=== PATIENT | female | born 1930 | race Caucasian/White ===

== ENCOUNTER 2017-09-25 21:16 | Inpatient (IN) | payer BC, MEDICARE ==
[2017-09-25 22:54] LABS: INR-International Normal Ratio 2.3; PTT 40.3 SEC (22.9-36.1); Prothrombin Time 26.2 SEC (12.0-14.7)
[2017-09-25 23:00] LABS: Band 14 % (5-11); Hemoglobin 14.1 g/dL (12.0-16.0); Lymphocytes 11 % (21-51); MDiff Complete? YES; Mean Corpuscular HGB CONC 33.5 g/dL (32.0-36.0); Mean Corpuscular Hemoglobin 32.4 pg (27.0-31.0); Mean Corpuscular Volume 96.7 fl (81.0-99.0); Mean Platelet Volume 7.5 fL (7.4-10.4); Monocytes 2 % (0-10); Neutrophil 73 % (42-75); PLT Morphology Comment Appears Adequate; Platelet Count 253 thou/uL (130-400); RBC Distribution Width 12.9 % (11.5-14.5); Red Blood Cell (RBC) Count 4.36 mill/uL (4.20-5.40); White Blood Cell (WBC) Count 29.6 thou/uL (4.8-10.8)
[2017-09-25 23:17] LABS: ALT (SGPT) 201 U/L (8-55); AST (SGOT) 239 U/L (5-34); Alkaline Phosphatase 232 U/L (40-150); Anion Gap 10 mmol/L (10-20); BUN (Urea Nitrogen) 31 mg/dL (9.8-20.1); Bilirubin, Total 4.6 mg/dL (0.2-1.2); Calc. Creatinine Clearance 0 mL/min (70-130); Calcium 8.6 mg/dL (7.8-10.44); Carbon Dioxide 28 mmol/L (23-31); Chloride 107 mmol/L (98-107); Estimated GFR-MDRD 68; Globulin 3.4 g/dL (2.4-3.5); Glucose 120 mg/dL (83-110); Lipase Less than 4 U/L (8-78); Potassium 3.5 mmol/L (3.5-5.1); Protein, Total 6.4 g/dL (6.0-8.3); Sodium 141 mmol/L (136-145)
[2017-09-26 00:25] VITALS: BMI 27.4
[2017-09-26] MEDS ORDERED: Sodium Chloride 0.9% 1,000 ML IV SCH (00:35)
[2017-09-26] MEDS ORDERED: Calcium Carbonate 500 MG ChewTAB PO PRN (04:34)
[2017-09-26] MEDS ORDERED: RENALLY ADJUST ANTIBIOTICS IVPB PRN (04:34)
[2017-09-26] MEDS ORDERED: Ondansetron HCl/PF 4 MG/2 ML Vial IVP PRN (04:34)
[2017-09-26] MEDS ORDERED: Ondansetron ODT 4 MG TAB PO PRN (04:34)
[2017-09-26] MEDS ORDERED: hydrALAZINE 20 MG/ML VIAL SLOW IVP PRN (04:36)
--- NOTE | 2017-09-26 05:01 | HP ---
DATE OF ADMISSION: 09/25/2017 PRIMARY CARE PHYSICIAN: Dr. Juarez. CODE STATUS: DO NOT RESUSCITATE. Surrogate decision maker is the daughter at the bedside. CHIEF COMPLAINT: The patient is a transfer from [facility] for possible cholangitis. HISTORY OF PRESENT ILLNESS: The patient is an 87-year-old female with dementia, currently residing a [facility], was brought in to [facility] with altered mentation. Her workup in the emergency room was consistent with possible cholangitis. Her lactic acid was 3.5. Urinalysis showe d nitrite positive, 20-50 wbc's, small amount of leukocyte esterase with many bacteria. BNP was 1100 . Troponin was negative. BUN was 34, creatinine 0.96, potassium 4.2, bilirubin of 5.6 with alkaline phosphatase 254, AST 406, ALT of 265. WBC 33.6, hemoglobin 14.6. Lactic acid 3.8. INR 2.2. Ultra sound of the abdomen showed cholelithiasis without sonographic findings to suggest acute cholecystiti s. CT abdomen and pelvis with contrast was consistent with cholelithiasis and dilated gallbladder wi thout other findings of acute cholecystitis. It showed indirect right inguinal hernia containing non obstructed loops of distal small bowel. There was some possible distal proctocolitis, which may be s tercoral. Chest x-ray was negative for infiltrate. CT scan of the brain was negative for acute find ings. She received Zosyn with IV fluids and was transferred to this facility for hospital admission. PAST MEDICAL HISTORY: 1. Chronic atrial fibrillation on anticoagulation. 2. 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 3. Hypertension. 4. Hypothyroidism. 5. Dementia. 6. Sick sinus syndrome. 7. Osteoporosis. 8. Hard of hearing. 9. Chronic anemia. PAST SURGICAL HISTORY: 1. Left femur surgery in 2009. 2. Thyroid surgery. 3. Hysterectomy. ALLERGIES: The patient is allergic to CODEINE. CURRENT HOME MEDICATIONS: We are trying to contact [facility]. There is no medication list in [facility] chart. SOCIAL HISTORY: As discussed above. No smoking, alcohol or drug use. She is wheelchair bound. She requires help with transfers. She is currently on pureed diet. She has chronic cognitive issues an d at times she is able to recognize her daughter. FAMILY HISTORY: Positive for hypertension and hypothyroidism. REVIEW OF SYSTEMS: Cannot be obtained reliably due to patient's current cognitive status. PHYSICAL EXAMINATION: VITAL SIGNS: Current vital signs showed temperature 98.2, pulse rate of 119, respirations 20, blood pressure 115/81 with O2 saturation 99% on 2 liter nasal cannula. GENERAL: An 87-year-old female in no apparent distress. Mentation at baseline per family at the bed side. HEENT: Head atraumatic, normocephalic. Sclerae are anicteric. Dry mucous membranes. No oral lesio n. NECK: Supple, no JVD appreciated. No carotid bruit. LUNGS: Showed decreased air entry at bilateral bases. No significant wheezing, rales or rhonchi. HEART: S1, S2 present. Irregularly irregular. No murmur, rubs, or gallops appreciated. ABDOMEN: Soft, nontender, bowel sounds present, no rebound, guarding appreciated. EXTREMITIES: No edema or calf tenderness. NEUROLOGIC: Could not be done due to current cognitive status. PSYCHIATRIC: Could not be done due to current cognitive status. SKIN: Warm and dry. LYMPH NODES: No palpable lymph nodes in the neck. LABORATORY AND X-RAY FINDINGS: As discussed above. Repeat WBC at this facility was 29.6 with 14% ba ndemia. INR was 2.3. Total bilirubin 4.6 with AST 239, ALT 201, alkaline phosphatase 232, albumin w as 3.0. Lipase was negative. Magnesium 1.9. A 2D echocardiogram from last admission showed left ve ntricular ejection fraction of 50%-55%. EKG by my review showed atrial fibrillation with nonspecific ST-T wave changes. IMPRESSION: 1. Sepsis with acute organ dysfunction with abnormal liver function tests. Possibilities include ac cherokee cholangitis/questionable acute cholecystitis. 2. Urinary tract infection. 3. Dehydration. 4. Chronic atrial fibrillation on anticoagulation. 5. Hypertension. 6. Hyperlipidemia. 7. Dementia. 8. Hypothyroidism. 9. Swallow dysfunction, currently on pureed diet. 10. CODEINE allergy. 11. Chronic kidney disease stage 2. PLAN: The patient will be monitored in the telemetry unit. We will keep her n.p.o. Consult GI and General Surgery in a.m. Continue Zosyn and urine cultures, IV fluids. Monitor LFTs. Repeat lactic acid was normal. We will confirm home medications from [facility]. Plan of care was discussed with the patient's daughter at the bedside, she stated understanding. Fall precautions. N.p.o. for now.
[2017-09-26] MEDS ORDERED: Piperacillin/Tazobactam 3.375 GM in Sodium Chloride 0.9% 100 ML IVPB SCH (06:00)
[2017-09-26] MEDS: Piperacillin/Tazobactam 3.375 GM in Sodium Chloride 0.9% 100 ML IVPB SCH ×4 (08:06→23:04)
[2017-09-26] MEDS: Pantoprazole 40 MG VIAL IVP SCH (08:06)
[2017-09-26] MEDS: D5 1/2 NS w/20 mEq KCL 1,000 ML IV SCH ×3 (08:52→23:54)
--- NOTE | 2017-09-26 14:16 | PDOC.PN ---
- Subjective Encounter Start Date: 09/26/17 Encounter Start Time: 14:14 Subjective: exhausted.no new complaints -: daughter at bedside.care discussed - Objective Resuscitation Status: Resuscitation Status DNR:Do Not Resuscitate MAR Reviewed: Yes Vital Signs & Weight: Vital Signs (12 hours) Temp Pulse Resp BP Pulse Ox 09/26/17 08:00 96.8 F L 96 20 110/71 96 09/26/17 04:44 96.9 F L 90 36 H 100/61 93 L I&O: 09/25/17 09/26/17 09/27/17 06:59 06:59 06:59 Intake Total 600 0 Balance 600 0 Result Diagrams: 09/25/17 22:39 09/25/17 22:39 Radiology Reviewed by me: Yes Phys Exam - Physical Examination Constitutional: NAD HEENT: PERRLA, moist MMs, sclera anicteric, oral pharynx no lesions Neck: no nodes, no JVD, supple, full ROM Respiratory: no wheezing, no rales, no rhonchi, clear to auscultation bilateral Cardiovascular: RRR, no significant murmur Gastrointestinal: soft, no distention Musculoskeletal: no edema, pulses present Neurological: moves all 4 limbs Psychiatric: normal affect, A&O x 3 Skin: no rash Dx/Plan (1) Sepsis Code(s): A41.9 - SEPSIS, UNSPECIFIED ORGANISM Status: Acute (2) Acute cholangitis Code(s): K83.0 - CHOLANGITIS Status: Acute (3) UTI (urinary tract infection) Status: Acute (4) Chronic atrial fibrillation Code(s): I48.2 - CHRONIC ATRIAL FIBRILLATION Status: Chronic Comment: rate controlled. Eliquis on hold in anticipation of surgery (5) HTN (hypertension) Code(s): I10 - ESSENTIAL (PRIMARY) HYPERTENSION Status: Acute (6) Dementia Code(s): F03.90 - UNSPECIFIED DEMENTIA WITHOUT BEHAVIORAL DISTURBANCE Status: Acute - Plan plan discussed w/ family, PT/OT, out of bed/ambulate, DVT proph w/SCDs cont IVF,IV ABx, -: awaiting GI and GS recs. -: follow LFts. -: resume home meds except for anticoagulation. -: am labs * .
--- NOTE | 2017-09-26 15:07 | CON ---
DATE OF CONSULTATION: 09/26/2017 CHIEF COMPLAINT: Possible cholecystitis. HISTORY OF PRESENT ILLNESS: The patient is an 87-year-old female who lives in a long term with thompson. She is DNR. Apparently yesterday, she stopped eating and developed nausea and vomiting. Rika amaya went to the emergency room in [place] where a CT scan and ultrasound showed a thickened gallbladder wall, multiple cholelithiasis. She was sent here. PAST MEDICAL HISTORY: Significant for atrial fibrillation on Eliquis, history of CVA in 2013, hypert ension, hypothyroidism, dementia, sick sinus syndrome. PAST SURGICAL HISTORY: She had a left femur fracture repair in 2009. She has had a thyroidectomy an d hysterectomy. MEDICATIONS: Aspirin, diltiazem, benzoate, Eliquis, Lasix, losartan, nadolol, potassium. ALLERGIES: She is allergic to CODEINE. SOCIAL HISTORY: Again, she lives in a long term. No tobacco or alcohol. I spoke to her daughter and [id number]. PHYSICAL EXAMINATION: VITAL SIGNS: Temperature 96.8, pulse 96, blood pressure 110/71. GENERAL: Elderly female, really not responsive. She will open her eyes, but that is about it. Th ere is no interaction. HEENT: She is jaundiced. She got obvious jaundice. LUNGS: Clear. HEART: Irregularly irregular. ABDOMEN: Soft. She has some mild right upper quadrant tenderness to deep palpation, no palpable mas s. EXTREMITIES: Unremarkable. LABORATORY DATA AND X-RAY FINDINGS: White count 29.6, H&H is 14 and 42, platelet count 253. Electro lytes show creatinine 0.8, glucose is elevated at 120. Her bilirubin is 4.6, AST of 239, alkaline ph osphatase 232, lipase is normal. ASSESSMENT: Acute cholecystitis, possible choledocholithiasis. PLAN: I talked to the daughter and [id number]. They are really not interested in the patient h aving surgery, looking at other options, she is also high risk for surgery. We will recommend GI con sultation for possible ERCP as well as percutaneous drainage of the gallbladder. We will talk to Rad iology for that procedure.
--- NOTE | 2017-09-26 16:00 | CT ---
CT OF THE ABDOMEN AND PELVIS WITHOUT IV CONTRAST: INDICATION: History of gallbladder disease requiring cholecystotomy tube. COMPARISON: None. FINDINGS: There are small bilateral pleural effusions and bibasilar atelectasis. There is cardiomegaly. The adrenal glands are unremarkable. There is some mild fatty atrophy of the pancreas. The spleen i s small. There is fatty infiltration of the liver. There is a gallstone within a mildly distended gallbladder. There is dilatation of the common bile d uct without definite evidence of an intraluminal stone. There is some mild nonspecific mesenteric st randing within the mesenteric root. There are small cysts involving both kidneys. There is prominent vascular calcification involving the abdominopelvic vasculature. Visualized aspects of the bladder are unremarkable. There is wall thickening involving the rectum, w hich is nonspecific. There are a few scattered colonic diverticula without evidence of active divert iculitis. There is a right inguinal hernia containing nonobstructed loops of small bowel. The appendix is not definitely seen. There are multiple compression abnormalities involving the thoracolumbar spine. Th izzy are of indeterminate chronicity. There is diffuse osteopenia. There is complete occlusion of th e proximal right SFA artery. There is a healed instrumented left hip fracture. No acute osseous abn ormality is evident. IMPRESSION: 1. Cholelithiasis with mild distention of the gallbladder. Recommend correlation with clinical exam for cholecystitis. 2. Dilatation of the common bile duct without visible definite intraluminal stone. Minimal intrahepa tic biliary ductal dilation. 3. Small bilateral pleural effusion and cardiomegaly. Recommend correlation regarding congestive he art failure. 4. 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 5. Right inguinal hernia containing nonobstructive loops of small bowel. 6. Small renal cysts. 7. Colonic diverticulosis. 8. Nonspecific wall thickening involving the rectum may reflect a component of proctitis. Recommend correlation. 9. Multiple age-indeterminate compression abnormalities involving T11, L1, L3, L4, and L5. POS: [facility]
[2017-09-26] MEDS ORDERED: ISOVUE-370 76%-LOCM 1 ML ONE (16:24)
[2017-09-27 05:23] LABS: #Eosinphils 0.1 thou/uL (0.0-0.7); #Lymphocytes 1.8 thou/uL (1.20-3.40); #Monocytes 0.6 thou/uL (0.11-0.59); #Neutrophils 10.6 thou/uL (1.40-6.50); %Basophils 0.1 % (0.0-1.0); %Eosinophils 0.4 % (0.0-10.0); %Lymphocytes 13.5 % (21.0-51.0); %Monocytes 4.4 % (0.0-10.0); %Neutrophils 81.5 % (42.0-75.0); Hemoglobin 13.5 g/dL (12.0-16.0); Mean Corpuscular HGB CONC 31.7 g/dL (32.0-36.0); Mean Corpuscular Hemoglobin 31.1 pg (27.0-31.0); Mean Corpuscular Volume 98.3 fl (81.0-99.0); Mean Platelet Volume 8.1 fL (7.4-10.4); Platelet Count 252 thou/uL (130-400); Red Blood Cell (RBC) Count 4.34 mill/uL (4.20-5.40)
[2017-09-27 05:37] LABS: ALT (SGPT) 102 U/L (8-55); AST (SGOT) 56 U/L (5-34); Albumin 2.8 g/dL (3.4-4.8); Alkaline Phosphatase 190 U/L (40-150); Anion Gap 8 mmol/L (10-20); BUN (Urea Nitrogen) 16 mg/dL (9.8-20.1); Bilirubin, Total 2.1 mg/dL (0.2-1.2); Calc. Creatinine Clearance 58 mL/min (70-130); Calcium 8.3 mg/dL (7.8-10.44); Carbon Dioxide 28 mmol/L (23-31); Chloride 110 mmol/L (98-107); Estimated GFR-MDRD 79; Globulin 3.2 g/dL (2.4-3.5); Glucose 141 mg/dL (83-110); Magnesium 1.9 mg/dL (1.6-2.6); Phosphorus 2.9 mg/dL (2.3-4.7); Potassium 3.3 mmol/L (3.5-5.1); Sodium 143 mmol/L (136-145)
[2017-09-27] MEDS: Piperacillin/Tazobactam 3.375 GM in Sodium Chloride 0.9% 100 ML IVPB SCH ×4 (06:10→23:31)
[2017-09-27] MEDS ORDERED: Midazolam HCl 2 mg/2 ml Vial ONE (08:12)
[2017-09-27] MEDS ORDERED: Fentanyl 100 MCG/2 ML VIAL ONE (08:12)
[2017-09-27] MEDS ORDERED: Sodium Bicarbonate 2.5 MEQ/5 ML VIAL ONE (08:12)
[2017-09-27] MEDS: Pantoprazole 40 MG VIAL IVP SCH (09:55)
[2017-09-27] MEDS ORDERED: Heparin 1,000 UNITS/ML VIAL ONE (10:00)
--- NOTE | 2017-09-27 10:58 | CON ---
DATE OF CONSULTATION: 09/26/2017 REFERRING PHYSICIAN: Dr. Jamir James. REASON FOR CONSULTATION: Abnormal liver function tests and distended gallbladder on sonogram and CAT scan and possibility of cholangitis. HISTORY OF PRESENT ILLNESS: Ms. Janet Amador is an 87-year-old female, who is a [facility] resident. Her regular primary care doctor, Dr. Juarez. The patient was seen in [facility] in [place] with altered mental status. The patient was seen at [facility] and had ev aluation done. It was found to have a UTI and also evidence of abnormal LFTs. The bilirubin level o f 5.6 and alkaline phosphatase 254. She had an abdominal sonogram and CAT scan. The CAT scan and so nogram showed markedly distended gallbladder, but did not show any evidence of any dilation of the bi le duct. She also had a leukocytosis with WBC count of more than 30,000 and also she has bandemia. Her lactic acid was 3.8. It was felt that she has septic and there is a possibility of cholangitis. She was transferred to [facility] last night. The patient was last seen in the room along with the patient's daughters. The patient is nonverbal. Apparently, she has had a CVA in the past a nd she is aphasic. She also has dementia. She is also hard of hearing. Most of the history is obta ined by going over the admitting history and physical by Dr. James. The patient was seen by Dr. Sancho Gama today and Dr. Sancho Gama recommended that percutaneous cholecystostomy because of poor surgica l outcome . The sonogram and CAT both showed gallbladder stone and also distended gallbladder. There is no dilated CBD. The patient is lying in bed and appears comfortable in no distress. There is no other relevant history available. MEDICAL ILLNESSES: 1. Chronic atrial fibrillation, on anticoagulation. 2. History of cerebrovascular accident 2013. 3. Dementia. 4. Hypertension. 5. Hypothyroidism. 6. Sick sinus syndrome. 7. Osteoporosis 8. Chronic anemia. SURGERIES: 1. Status post left knee surgery in 2009. 2. Thyroid surgery. 3. Hysterectomy. MEDICATIONS: List reviewed. REVIEW OF SYSTEMS: Unobtainable because of the dementia and also aphasia. PHYSICAL EXAMINATION: GENERAL: The patient appears comfortable and she really has no response to any questioning. She is in no distress. She is icteric. VITAL SIGNS: Temperature 99 degrees Fahrenheit. Pulse is 80, blood pressure 130/70. NECK: Supple. CARDIOVASCULAR: First and second heart sounds normal. LUNGS: Clear to auscultation. ABDOMEN: Soft to palpate. Abdomen is nondistended. Abdomen is nontender even on deep palpation. T here is no rebound or guarding. No organomegaly or masses. LABORATORY DATA: Showed a UTI with wbc's 20 to 50 and small amount of leukoesterase and many bacteri a. BUN was 34, creatinine 0.96, potassium 4.2, bilirubin 5.6, alkaline phosphatase 254. AST 406, AL T 265. WBC 33,600 with bandemia, hemoglobin 14.6. Lactic acid 3.8. CLINICAL IMPRESSION: 1. An 87-year-old female with altered mental status with no history of abdominal pain, nausea, vomit ing. The evaluation in the ER did show abnormal LFTs and subsequently, she had an abdominal sonogram and CAT scan. Both showed gallstones and also distended gallbladder. There is no dilated CBD or in trahepatic ducts. 2. Urinary tract infection. I believe she most likely has acute cholecystitis and at the present time, there is no evidence of an y bile duct dilatation. I agree with Dr. Sancho Gama's recommendation to proceed with a percutaneous cholecystostomy.
--- NOTE | 2017-09-27 12:10 | CT ---
CT GUIDED SUBCUTANEOUS CHOLECYSTOTOMY: HISTORY: Acute cholecystitis. Poor surgical candidate. FINDINGS: After explaining the procedure and answering all questions, limited CT imaging of the upper abdomen w as performed. Anterior right upper quadrant approach as planned. Sterile technique, buffered local anesthesia, CT guidance, and an anterolateral approach were used to carefully advance the tip of 22-g auge needle into the gallbladder lumen. While attempt was made to achieve purchase through the hepat ic parenchyma, the gallbladder anatomy, position, and patient inability to cooperate with respiration of breathing precluded good hepatic parenchyma purchase approach. Acupuncture system technique was then used to place a 0.035 Amplatz wire. The tract was dilated to 8 Luxembourger and an 8 Luxembourger locking loop Uresil catheter was placed in the gallbladder lumen. Approximat jojo 20 cc of thick greenish liquid was aspirated. A portion was sent to pathology for evaluation. T he catheter was secured externally with 2-0 Ethilon suture and left draining to gravity. The patient tolerate the procedure well and was returned in improved condition. IMPRESSION: Technically successful CT-guided cholecystostomy. Pathology is pending. POS: [facility]
[2017-09-27] MEDS ORDERED: Morphine 2 MG/ML SYRINGE SLOW IVP SCH (13:30)
[2017-09-27] MEDS: D5 1/2 NS w/20 mEq KCL 1,000 ML IV SCH (13:34)
--- NOTE | 2017-09-27 14:14 | PDOC.PN ---
- Subjective Encounter Start Date: 09/27/17 Encounter Start Time: 14:12 Subjective: S/P CT GUIDED CHOLECYSTOSTOMY -: Not bal eto discuss care d/t advanced dementia -: family at bedside.care discussed w them.they report that pt is at baseline - Objective Resuscitation Status: Resuscitation Status DNR:Do Not Resuscitate MAR Reviewed: Yes Vital Signs & Weight: Vital Signs (12 hours) Temp Pulse Pulse Resp BP BP Pulse Ox 09/27/17 12:15 97.4 F L 112 H 24 H 170/72 H 100 09/27/17 08:40 97.3 F L 101 H 32 H 132/84 100 09/27/17 08:00 98.2 F 74 28 H 144/74 H 95 09/27/17 07:46 105 H 192/83 H 09/27/17 04:00 98.2 F 105 H 20 151/72 H 97 Pulse Ox 09/27/17 12:15 09/27/17 08:40 09/27/17 08:00 09/27/17 07:46 91 L 09/27/17 04:00 Weight Admit Weight 145 lb 4 oz Weight 145 lb 4 oz I&O: 09/26/17 09/27/17 09/28/17 06:59 06:59 06:59 Intake Total 600 1000 Balance 600 1000 Result Diagrams: 09/27/17 05:01 09/27/17 05:01 Additional Labs: Laboratory Tests 09/25/17 09/27/17 22:39 05:01 Total Bilirubin 4.6 H 2.1 H AST 239 H 56 H ALT 201 H 102 H Alkaline Phosphatase 232 H 190 H Radiology Reviewed by me: Yes (Ct A/P- SFA occlusion R side,cholelithiasis) Phys Exam - Physical Examination Constitutional: NAD awake,doesn't follow commands.very hard of hearing.responds better to famil dry mucosa,mouth breathing Neck: no nodes, no JVD, supple, full ROM Respiratory: no wheezing, no rales, no rhonchi, clear to auscultation bilateral Cardiovascular: RRR, no significant murmur Gastrointestinal: soft, no distention, positive bowel sounds GB drain in place w brownish liquid Musculoskeletal: no edema, pulses present Neurological: moves all 4 limbs Psychiatric: normal affect Dx/Plan (1) Sepsis Code(s): A41.9 - SEPSIS, UNSPECIFIED ORGANISM Status: Acute (2) Acute cholangitis Code(s): K83.0 - CHOLANGITIS Status: Acute (3) UTI (urinary tract infection) Status: Acute Comment: Cx pending. (4) Chronic atrial fibrillation Code(s): I48.2 - CHRONIC ATRIAL FIBRILLATION Status: Chronic Comment: rate controlled. Eliquis on hold in anticipation of surgery (5) HTN (hypertension) Code(s): I10 - ESSENTIAL (PRIMARY) HYPERTENSION Status: Acute (6) Dementia Code(s): F03.90 - UNSPECIFIED DEMENTIA WITHOUT BEHAVIORAL DISTURBANCE Status: Acute - Plan galeano catheter, continue antibiotics, PT/OT, speech therapy, DVT proph w/SCDs Cont post-op care.appreciate GI & GS input -: cont ABx. -: SFA oclusion discussed w family.they do not want any surgery for her. -: replace and recheck potassium -: Home meds not updated.Eliquis on hold * .OT,PT. may need rehab.Lives at [facility] Review of Systems - Review of Systems Other: can not be obtained due to dementia - Medications/Allergies Allergies/Adverse Reactions: Allergies Allergy/AdvReac Type Severity Reaction Status Date / Time codeine Allergy Verified 01/11/14 20:16 Medications: Current Medications Calcium Carbonate (Tums) 1,000 mg PO Q4H PRN PRN Reason: Heartburn or Indigestion Hydralazine HCl (Apresoline) 10 mg SLOW IVP Q4H PRN PRN Reason: SBP Greater Than 180 Piperacillin Sod/Tazobactam (Sod 3.375 gm/ Sodium Chloride) 100 mls @ 200 mls/ hr IVPB Q6HR [facility] Last Admin: 09/27/17 12:16 Dose: 100 mls Potassium Chloride/Dextrose/Sod Cl (D5 1/2 Ns W/20 Meq Kcl) 1,000 mls @ 75 mls/ hr IV .[id number] [facility] Last Admin: 09/27/17 13:34 Dose: 1,000 mls Miscellaneous Medication (Pharmacy To Dose) 1 each IVPB PRN PRN PRN Reason: Pharmacy to dose Morphine Sulfate (Morphine) 2 mg SLOW IVP NOW [facility] Stop: 09/27/17 15:00 Last Admin: 09/27/17 13:33 Dose: 2 mg Ondansetron HCl (Zofran Odt) 4 mg PO Q6H PRN PRN Reason: Nausea/Vomiting Ondansetron HCl (Zofran) 4 mg IVP Q6H PRN PRN Reason: Nausea/Vomiting Pantoprazole Sodium (Protonix) 40 mg IVP DAILY [facility] Last Admin: 09/27/17 09:55 Dose: 40 mg Sodium Chloride (Flush - Normal Saline) 10 ml IVF Q12HR [facility] Last Admin: 09/27/17 09:56 Dose: 10 ml Sodium Chloride (Flush - Normal Saline) 10 ml IVF PRN PRN PRN Reason: Saline Flush Last Admin: 09/26/17 23:04 Dose: 10 ml
[2017-09-27] MEDS ORDERED: Potassium Chloride 40 MEQ in Sodium Chloride 0.9% 250 ML 250 ML IVPB SCH (14:30)
--- NOTE | 2017-09-27 15:39 | PRG ---
DATE OF SERVICE: 09/27/2017 SUBJECTIVE: Ms. Janet Amador is an 87-year-old unfortunate female hospitalized with abnormal LF Ts and sepsis and possible cholangitis. The patient was seen by Dr. Sancho Gama and patient is high r isk for surgery. She underwent a percutaneous cholecystostomy by Dr. Wolff this morning. She is d oing well at the present time. She is aphasic and she cannot communicate. OBJECTIVE: GENERAL: Appears comfortable. VITAL SIGNS: Temperature 98.3 Fahrenheit. Pulse is 74, blood pressure 144/77. CARDIOVASCULAR: Within normal limits. LUNGS: Within normal limits. ABDOMEN: Soft to palpate. Abdomen is nondistended. The patient's LFTs are coming down even before her cholecystostomy. LABORATORY DATA: The lab data from today, sodium 143, potassium 3.3, chloride 110, bicarbonate 28, B UN is 16, creatinine 0.70. Glucose 141, bilirubin down to 2.1, AST down to 56, ALT 102, alkaline santana sphatase 190. CBC: WBC count has come down to 13,000, normal hemoglobin and hematocrit. The differe ntial count shows no bandemia today, polymorphs 81, monocytes 4, basophils 0.1, lymphocytes 13.5. RECOMMENDATION: Possible cholangitis, cholecystitis, status post cholecystectomy. From GI standpoint, workup planned. Hopefully she can [facility] the near future.
[2017-09-27 16:43] LABS: Clarity Clear (Clear); RBC Background Count 0.007; Tube # EDTA
[2017-09-27 16:44] LABS: BF RBC Count - Manual 45 /cumm; WBC/NonHematic-Auto 251 /cumm
[2017-09-27] MEDS: traMADol HCl 50 MG TAB PO PRN (20:58)
[2017-09-28 05:26] LABS: #Basophils 0.1 thou/uL (0.0-0.2); #Eosinphils 0.1 thou/uL (0.0-0.7); #Lymphocytes 2.5 thou/uL (1.20-3.40); #Monocytes 0.8 thou/uL (0.11-0.59); #Neutrophils 8.1 thou/uL (1.40-6.50); %Basophils 0.5 % (0.0-1.0); %Eosinophils 0.7 % (0.0-10.0); %Lymphocytes 21.9 % (21.0-51.0); %Monocytes 6.7 % (0.0-10.0); %Neutrophils 70.3 % (42.0-75.0); Hemoglobin 13.8 g/dL (12.0-16.0); Mean Corpuscular HGB CONC 32.3 g/dL (32.0-36.0); Mean Corpuscular Hemoglobin 31.5 pg (27.0-31.0); Mean Corpuscular Volume 97.6 fl (81.0-99.0); Mean Platelet Volume 8.1 fL (7.4-10.4); Platelet Count 233 thou/uL (130-400); Red Blood Cell (RBC) Count 4.38 mill/uL (4.20-5.40); White Blood Cell (WBC) Count 11.5 thou/uL (4.8-10.8)
[2017-09-28] MEDS: Piperacillin/Tazobactam 3.375 GM in Sodium Chloride 0.9% 100 ML IVPB SCH ×4 (05:37→23:33)
[2017-09-28] MEDS: D5 1/2 NS w/20 mEq KCL 1,000 ML IV SCH (05:38)
[2017-09-28 05:44] LABS: ALT (SGPT) 67 U/L (8-55); AST (SGOT) 28 U/L (5-34); Albumin 2.8 g/dL (3.4-4.8); Alkaline Phosphatase 174 U/L (40-150); Anion Gap 10 mmol/L (10-20); BUN (Urea Nitrogen) 14 mg/dL (9.8-20.1); Bilirubin, Total 2.4 mg/dL (0.2-1.2); Calc. Creatinine Clearance 64 mL/min (70-130); Calcium 8.4 mg/dL (7.8-10.44); Carbon Dioxide 23 mmol/L (23-31); Chloride 113 mmol/L (98-107); Estimated GFR-MDRD 89; Globulin 3.1 g/dL (2.4-3.5); Glucose 133 mg/dL (83-110); Magnesium 1.9 mg/dL (1.6-2.6); Phosphorus 2.6 mg/dL (2.3-4.7); Potassium 4.2 mmol/L (3.5-5.1); Protein, Total 5.9 g/dL (6.0-8.3); Sodium 142 mmol/L (136-145)
[2017-09-28] MEDS: Pantoprazole 40 MG VIAL IVP SCH (08:55)
[2017-09-28] MEDS ORDERED: Benzonatate 100 MG CAP PO PRN ×2 (11:48→12:54)
--- NOTE | 2017-09-28 14:03 | PDOC.PN ---
- Subjective Encounter Start Date: 09/28/17 Encounter Start Time: 14:02 Subjective: feels about the same. denies any pain.no new complaints -: daughter at bedside. car ediscussed in detail -: Pt w aphasia & dementia,so limited participation - Objective Resuscitation Status: Resuscitation Status DNR:Do Not Resuscitate MAR Reviewed: Yes Vital Signs & Weight: Vital Signs (12 hours) Temp Pulse Resp BP Pulse Ox 09/28/17 11:25 96.3 F L 134 H 30 H 133/90 97 09/28/17 07:41 96.8 F L 108 H 20 09/28/17 07:30 96.8 F L 108 H 20 141/93 H 98 09/28/17 04:00 96.8 F L 106 H 18 135/87 97 Weight Admit Weight 145 lb 4 oz Weight 145 lb 4 oz I&O: 09/27/17 09/28/17 09/29/17 06:59 06:59 06:59 Intake Total 1000 3930 Output Total 550 Balance 1000 3380 Result Diagrams: 09/28/17 04:50 09/28/17 04:50 Additional Labs: Microbiology 09/27/17 09:15 Gallbladder - Aspirate Bacterial Culture - Preliminary Laboratory Tests 09/25/17 09/27/17 09/27/17 22:39 05:01 09:15 Total Bilirubin 4.6 H 2.1 H AST 239 H 56 H ALT 201 H 102 H Alkaline Phosphatase 232 H 190 H Fluid WBC 251 Fluid RBC (Manual) 45 09/28/17 04:50 Total Bilirubin 2.4 H AST 28 ALT 67 H Alkaline Phosphatase 174 H Fluid WBC Fluid RBC (Manual) Phys Exam - Physical Examination Constitutional: NAD sleeping but wakes up easily.jaundiced HEENT: PERRLA, 2+ tonsils Neck: no JVD Respiratory: no wheezing, no rales, no rhonchi, clear to auscultation bilateral Cardiovascular: no significant murmur, irregular Gastrointestinal: soft, non-tender, no distention, positive bowel sounds Musculoskeletal: no edema, pulses present hemiparesis,aphasic Psychiatric: normal affect Skin: no rash Dx/Plan (1) Sepsis Code(s): A41.9 - SEPSIS, UNSPECIFIED ORGANISM Status: Acute (2) Acute cholangitis Code(s): K83.0 - CHOLANGITIS Status: Acute (3) UTI (urinary tract infection) Status: Acute Comment: Cx pending.GNR (4) Chronic atrial fibrillation Code(s): I48.2 - CHRONIC ATRIAL FIBRILLATION Status: Chronic Comment: rate controlled. Eliquis on hold in anticipation of surgery (5) HTN (hypertension) Code(s): I10 - ESSENTIAL (PRIMARY) HYPERTENSION Status: Acute (6) Dementia Code(s): F03.90 - UNSPECIFIED DEMENTIA WITHOUT BEHAVIORAL DISTURBANCE Status: Acute - Plan PT/OT, community mental health social worker, respiratory therapy, incentive spirometry, DVT proph w/ SCDs Home meds update and restarted including BB and CCB. -: cont to hold eliquis to prevent risk of bleed from surgical site -: cont ABx.follow Cx from urine & bile.on zosyn -: DC IVF.hold lasix for now.If renal Fx stable,will restart from tomorrow -: am labs.DC back to [facility] when ok w GS * . 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 - Medications/Allergies Allergies/Adverse Reactions: Allergies Allergy/AdvReac Type Severity Reaction Status Date / Time codeine Allergy Verified 01/11/14 20:16 Medications: Current Medications Acidophilus (Floranex) 1 tab PO TID [facility] Aspirin (Aspirin Chewable) 81 mg PO DAILY [facility] Benzonatate (Tessalon) 200 mg PO TIDPRN PRN PRN Reason: Cough Calcium Carbonate (Tums) 1,000 mg PO Q4H PRN PRN Reason: Heartburn or Indigestion Diltiazem HCl (Cardizem) 30 mg PO Q6H [facility] Last Admin: 09/28/17 12:55 Dose: 30 mg Hydralazine HCl (Apresoline) 10 mg SLOW IVP Q4H PRN PRN Reason: SBP Greater Than 180 Piperacillin Sod/Tazobactam (Sod 3.375 gm/ Sodium Chloride) 100 mls @ 200 mls/ hr IVPB Q6HR [facility] Last Admin: 09/28/17 11:40 Dose: 100 mls Levothyroxine Sodium (Synthroid) 75 mcg PO 0600 [facility] Miscellaneous Medication (Pharmacy To Dose) 1 each IVPB PRN PRN PRN Reason: Pharmacy to dose Nadolol (Corgard) 40 mg PO DAILY [facility] Ondansetron HCl (Zofran Odt) 4 mg PO Q6H PRN PRN Reason: Nausea/Vomiting Ondansetron HCl (Zofran) 4 mg IVP Q6H PRN PRN Reason: Nausea/Vomiting Pantoprazole Sodium (Protonix) 40 mg PO DAILY [facility] Simvastatin (Zocor) 5 mg PO HS [facility] Sodium Chloride (Flush - Normal Saline) 10 ml IVF Q12HR [facility] Last Admin: 09/28/17 08:55 Dose: 10 ml Sodium Chloride (Flush - Normal Saline) 10 ml IVF PRN PRN PRN Reason: Saline Flush Last Admin: 09/26/17 23:04 Dose: 10 ml Tramadol HCl (Ultram) 50 mg PO Q4H PRN PRN Reason: Pain Last Admin: 09/27/17 20:58 Dose: 50 mg
[2017-09-28] MEDS: Lactinex Tablet PO SCH ×2 (15:27→21:38)
[2017-09-28] MEDS: Simvastatin 5 MG TAB PO SCH (21:38)
[2017-09-29 05:02] LABS: #Eosinphils 0.1 thou/uL (0.0-0.7); #Lymphocytes 2.1 thou/uL (1.20-3.40); #Monocytes 0.9 thou/uL (0.11-0.59); #Neutrophils 7.9 thou/uL (1.40-6.50); %Basophils 0.1 % (0.0-1.0); %Eosinophils 0.6 % (0.0-10.0); %Lymphocytes 19.5 % (21.0-51.0); %Monocytes 8.4 % (0.0-10.0); %Neutrophils 71.5 % (42.0-75.0); Hemoglobin 13.8 g/dL (12.0-16.0); Mean Corpuscular HGB CONC 32.5 g/dL (32.0-36.0); Mean Corpuscular Hemoglobin 31.5 pg (27.0-31.0); Mean Corpuscular Volume 96.9 fl (81.0-99.0); Mean Platelet Volume 7.9 fL (7.4-10.4); Platelet Count 234 thou/uL (130-400); RBC Distribution Width 12.8 % (11.5-14.5); Red Blood Cell (RBC) Count 4.39 mill/uL (4.20-5.40)
[2017-09-29] MEDS: Levothyroxine Sodium 75 MCG TAB PO SCH (05:06)
[2017-09-29 05:15] LABS: ALT (SGPT) 50 U/L (8-55); AST (SGOT) 22 U/L (5-34); Albumin 2.8 g/dL (3.4-4.8); Alkaline Phosphatase 150 U/L (40-150); Anion Gap 12 mmol/L (10-20); BUN (Urea Nitrogen) 16 mg/dL (9.8-20.1); Calc. Creatinine Clearance 62 mL/min (70-130); Calcium 8.3 mg/dL (7.8-10.44); Carbon Dioxide 22 mmol/L (23-31); Chloride 111 mmol/L (98-107); Estimated GFR-MDRD 86; Globulin 3.3 g/dL (2.4-3.5); Glucose 130 mg/dL (83-110); Potassium 3.7 mmol/L (3.5-5.1); Protein, Total 6.1 g/dL (6.0-8.3); Sodium 141 mmol/L (136-145)
[2017-09-29] MEDS: Piperacillin/Tazobactam 3.375 GM in Sodium Chloride 0.9% 100 ML IVPB SCH ×4 (05:46→23:53)
[2017-09-29] MEDS: Nadolol 40 MG TAB PO SCH (08:49)
[2017-09-29] MEDS: Lactinex Tablet PO SCH ×3 (08:49→21:04)
--- NOTE | 2017-09-29 11:47 | PDOC.PN ---
- Subjective Encounter Start Date: 09/29/17 Encounter Start Time: 11:46 Subjective: feels OK. very hard of hearing so limited conversation -: also severe dysarthria d/t old CVA -: no new events per nursing - Objective Resuscitation Status: Resuscitation Status DNR:Do Not Resuscitate MAR Reviewed: Yes Vital Signs & Weight: Vital Signs (12 hours) Temp Pulse Resp BP Pulse Ox 09/29/17 08:00 97.4 F L 106 H 22 H 09/29/17 07:39 97.4 F L 106 H 22 H 160/97 H 94 L 09/29/17 04:00 96.8 F L 98 32 H 139/76 97 09/29/17 00:00 97.9 F 118 H 36 H 138/84 100 Weight Admit Weight 145 lb 4 oz Weight 145 lb 4 oz I&O: 09/28/17 09/29/17 09/30/17 06:59 06:59 06:59 Intake Total 3930 1140 Output Total 550 400 Balance 3380 740 Result Diagrams: 09/29/17 04:39 09/29/17 04:39 Additional Labs: Microbiology 09/27/17 09:15 Gallbladder - Aspirate Bacterial Culture - Final Escherichia coli Laboratory Tests 09/25/17 09/27/17 09/28/17 22:39 05:01 04:50 Total Bilirubin 4.6 H 2.1 H 2.4 H AST 239 H 56 H 28 ALT 201 H 102 H 67 H Alkaline Phosphatase 232 H 190 H 174 H 09/29/17 04:39 Total Bilirubin 2.0 H AST 22 ALT 50 Alkaline Phosphatase 150 Phys Exam - Physical Examination Constitutional: NAD more awake and interactive today,mouth breather HEENT: PERRLA, sclera anicteric dry mucosa due to mouth breathing Neck: no JVD Respiratory: no wheezing, no rales, no rhonchi Cardiovascular: no significant murmur, irregular Gastrointestinal: soft, non-tender, no distention, positive bowel sounds Musculoskeletal: no edema, pulses present Neurological: non-focal, normal sensation, moves all 4 limbs Psychiatric: normal affect Skin: no rash Deviation from normal: Jaundice improved Dx/Plan (1) Sepsis Code(s): A41.9 - SEPSIS, UNSPECIFIED ORGANISM Status: Acute (2) Acute cholangitis Code(s): K83.0 - CHOLANGITIS Status: Acute Comment: S/P Cholecystostomy with external drain (3) UTI (urinary tract infection) Status: Acute Comment: Cx pending.GNR (4) Chronic atrial fibrillation Code(s): I48.2 - CHRONIC ATRIAL FIBRILLATION Status: Chronic Comment: rate controlled. Eliquis on hold due to recent surgery (5) HTN (hypertension) Code(s): I10 - ESSENTIAL (PRIMARY) HYPERTENSION Status: Chronic (6) Dementia Code(s): F03.90 - UNSPECIFIED DEMENTIA WITHOUT BEHAVIORAL DISTURBANCE Status: Chronic (7) Transaminitis Code(s): R74.0 - NONSPEC ELEV OF LEVELS OF TRANSAMNS & LACTIC ACID DEHYDRGNSE Status: Acute Comment: improving.d/t GB stones and obstructive Jaundice (8) Hyperbilirubinemia Code(s): E80.6 - OTHER DISORDERS OF BILIRUBIN METABOLISM Status: Acute Comment: improving.d/t GB stones and obstructive Jaundice - Plan galeano catheter, continue antibiotics, PT/OT, respiratory therapy, incentive spirometry, out of bed/ambulate, DVT proph w/SCDs Tachycardia improved w starting home meds including BB & CCB.BP WNL.monitor -: E.coli in bile-sensitive to zosyn-continue.Drain in place -: GS following.will need to know if pt needs to be discharged with/without it -: LFTs,Bilirubin improving daily post Cholecystostomy -: cont supportive care.restart lasix at lower dose & monitor renal Fx * . Review of Systems - Review of Systems Other: limited d/t dysarthria,hearing loss and dementia - Medications/Allergies Allergies/Adverse Reactions: Allergies Allergy/AdvReac Type Severity Reaction Status Date / Time codeine Allergy Verified 01/11/14 20:16 Medications: Current Medications Acidophilus (Floranex) 1 tab PO TID [facility] Last Admin: 09/29/17 08:49 Dose: 1 tab Aspirin (Aspirin Chewable) 81 mg PO DAILY [facility] Last Admin: 09/29/17 08:49 Dose: 81 mg Benzonatate (Tessalon) 200 mg PO TIDPRN PRN PRN Reason: Cough Calcium Carbonate (Tums) 1,000 mg PO Q4H PRN PRN Reason: Heartburn or Indigestion Diltiazem HCl (Cardizem) 30 mg PO Q6H [facility] Last Admin: 09/29/17 05:05 Dose: 30 mg Hydralazine HCl (Apresoline) 10 mg SLOW IVP Q4H PRN PRN Reason: SBP Greater Than 180 Piperacillin Sod/Tazobactam (Sod 3.375 gm/ Sodium Chloride) 100 mls @ 200 mls/ hr IVPB Q6HR [facility] Last Admin: 09/29/17 05:46 Dose: 100 mls Levothyroxine Sodium (Synthroid) 75 mcg PO 0600 [facility] Last Admin: 09/29/17 05:06 Dose: 75 mcg Miscellaneous Medication (Pharmacy To Dose) 1 each IVPB PRN PRN PRN Reason: Pharmacy to dose Nadolol (Corgard) 40 mg PO DAILY [facility] Last Admin: 09/29/17 08:49 Dose: 40 mg Ondansetron HCl (Zofran Odt) 4 mg PO Q6H PRN PRN Reason: Nausea/Vomiting Ondansetron HCl (Zofran) 4 mg IVP Q6H PRN PRN Reason: Nausea/Vomiting Pantoprazole Sodium (Protonix) 40 mg PO DAILY [facility] Last Admin: 09/29/17 08:49 Dose: 40 mg Simvastatin (Zocor) 5 mg PO HS [facility] Last Admin: 09/28/17 21:38 Dose: 5 mg Sodium Chloride (Flush - Normal Saline) 10 ml IVF Q12HR [facility] Last Admin: 09/29/17 08:49 Dose: Not Given Sodium Chloride (Flush - Normal Saline) 10 ml IVF PRN PRN PRN Reason: Saline Flush Last Admin: 09/26/17 23:04 Dose: 10 ml Tramadol HCl (Ultram) 50 mg PO Q4H PRN PRN Reason: Pain Last Admin: 09/27/17 20:58 Dose: 50 mg
[2017-09-29] MEDS ORDERED: Furosemide 20 MG TAB PO SCH (12:30)
[2017-09-29] MEDS: Simvastatin 5 MG TAB PO SCH (21:04)
[2017-09-30 05:07] LABS: #Eosinphils 0.1 thou/uL (0.0-0.7); #Lymphocytes 2.2 thou/uL (1.20-3.40); #Neutrophils 7.3 thou/uL (1.40-6.50); %Basophils 0.2 % (0.0-1.0); %Eosinophils 0.6 % (0.0-10.0); %Lymphocytes 20.6 % (21.0-51.0); %Monocytes 9.5 % (0.0-10.0); %Neutrophils 69.1 % (42.0-75.0); Mean Corpuscular HGB CONC 32.4 g/dL (32.0-36.0); Mean Corpuscular Hemoglobin 31.3 pg (27.0-31.0); Mean Corpuscular Volume 96.6 fl (81.0-99.0); Mean Platelet Volume 8.1 fL (7.4-10.4); Platelet Count 246 thou/uL (130-400); RBC Distribution Width 12.8 % (11.5-14.5); Red Blood Cell (RBC) Count 4.46 mill/uL (4.20-5.40); White Blood Cell (WBC) Count 10.6 thou/uL (4.8-10.8)
[2017-09-30 05:15] LABS: Anion Gap 12 mmol/L (10-20); BUN (Urea Nitrogen) 13 mg/dL (9.8-20.1); Calc. Creatinine Clearance 59 mL/min (70-130); Calcium 8.5 mg/dL (7.8-10.44); Carbon Dioxide 25 mmol/L (23-31); Chloride 105 mmol/L (98-107); Estimated GFR-MDRD 82; Glucose 113 mg/dL (83-110); Potassium 3.2 mmol/L (3.5-5.1); Sodium 139 mmol/L (136-145)
[2017-09-30] MEDS: Piperacillin/Tazobactam 3.375 GM in Sodium Chloride 0.9% 100 ML IVPB SCH ×4 (05:17→23:34)
[2017-09-30] MEDS: Levothyroxine Sodium 75 MCG TAB PO SCH (05:17)
[2017-09-30] MEDS: Lactinex Tablet PO SCH ×3 (09:23→22:18)
[2017-09-30] MEDS: Potassium Chloride 20 MEQ TAB PO SCH ×2 (09:23→18:01)
[2017-09-30] MEDS: Furosemide 20 MG TAB PO SCH (09:23)
[2017-09-30] MEDS: Nadolol 40 MG TAB PO SCH (09:24)
[2017-09-30] MEDS ORDERED: Clopidogrel Bisulfate 75 MG TAB ONE (11:55)
--- NOTE | 2017-09-30 13:25 | PQF ---
CLINICAL DOCUMENTATION IMPROVEMENT CLARIFICATION FORM: ICD-10 Updated PLEASE DO AN ADDENDUM TO THE PROGRESS NOTE WITH ANY DOCUMENTATION UPDATES OR ADDITIONS AND CARRY THROUGH TO DC SUMMARY. THANK YOU. DATE: 09/30/17 ATTN: Dr. James Please exercise your independent, professional judgment in responding to the clarification form. Clinical indicators are provided on the bottom of this form for your review Please check appropriate box(s): I (concur) with the Nursing Assessment findings as stated below. [ ] Pressure Ulcer: (Stage I: Erythema; Stage II: Partial thickness; Stage III : Full thickness; Stage IV: Necrosis to muscle/bone) [ ] Location: Stage (I to IV): (Left Right Bilateral N/ A ) [ ] Location: Stage (I to IV): (Left Right Bilateral N/ A ) [ ] No pressure ulcer diagnosis [ ] Deep tissue injury [ ] Other diagnosis [ ] Unable to determine In addition, please specify: Present on Admission (POA): [ ] Yes [ ] No [ ] Unable to determine For continuity of documentation, please document condition throughout progress notes and discharge summary. Thank You. CLINICAL INDICATORS - SIGNS / SYMPTOMS / LABS NURSING ASSESSMENT 09/26 @ 0800: LEFT LATERAL FOOT PRESSURE ULCER. STAGE II SACROCOCCYGEAL PRESSURE ULCER. STAGE I RISKS: H&P:87 YR OLD WITH DEMENTIA. HX CVA IN 2013, HTN, CHRONIC ANEMIA. SHE IS WHEELCHAIR BOUND. SEPSIS. UTI. DEHYDRATION. TREATMENTS: SKIN INTERVENTIONS PER NURSING PROTOCOL. POSITION CHANGES: Q2H IN BED, Q1 H IN CHAIR SKIN KEPT FROM EXCESSIVE MOISTURE. Pre-ulcer skin changes limited to persistent focal edema (Stage 1) Abrasion, blister, partial thickness skin loss involving epidermis and/or dermis (Stage 2) Full thickness skin loss involving damage or necrosis of SQ tissue. (Stage 3) Necrosis of soft tissue through to underlying muscle, tendon, or bone. (Stage 4) Purple or maroon discolored skin or blood filled blister Thank you, Iva (This form is maintained as a part of the permanent medical record) 2015 [employer]. All Rights Reserved Iva Roldan RN, BSN [email or web address] Office: [phone] [facility]
--- NOTE | 2017-09-30 21:59 | PDOC.PN ---
- Subjective Encounter Start Date: 09/30/17 Encounter Start Time: 10:30 Patient seen and examined. No new complaints. No overnight events - Objective Resuscitation Status: Resuscitation Status DNR:Do Not Resuscitate MAR Reviewed: Yes Vital Signs & Weight: Vital Signs (12 hours) Temp Pulse Resp BP BP Pulse Ox 09/30/17 20:00 98.0 F 101 H 20 134/81 90 L 09/30/17 13:20 98.5 F 90 20 108/71 93 L 09/30/17 12:00 97.8 F 79 18 121/75 95 Weight Admit Weight 145 lb 4 oz Weight 145 lb 4 oz I&O: 09/29/17 09/30/17 10/01/17 06:59 06:59 06:59 Intake Total 1140 1610 Output Total 400 4224 550 Balance 332 -7261 -550 Result Diagrams: 10/01/17 04:49 10/01/17 04:49 EKG Reviewed by me: Yes (Tele Afib) Phys Exam - Physical Examination Constitutional: NAD Respiratory: no wheezing, no rhonchi Cardiovascular: no rub, irregular Gastrointestinal: soft, non-tender, positive bowel sounds Musculoskeletal: no edema Neurological: moves all 4 limbs Dx/Plan - Plan DVT proph w/lovenox, DVT proph w/SCDs IMPRESSION: 1. Sepsis with acute organ dysfunction duet to acute cholangitis/?acute cholecystitis. 2. Hypokalemia 3. Chronic atrial fibrillation 4. Hypertension. 5. 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 STAGE I (Present of admission) 6. Other issues per previous notes PLAN: * Change Atbx to Ceftriaxone based on culture * Replace Potassium * AM labs * DC planning * Surg following Review of Systems - Review of Systems Respiratory: negative: Cough, Dry, Shortness of Breath, Hemoptysis, SOB with Excertion, Pleuritic Pain, Sputum, Wheezing Cardiovascular: negative: chest pain, palpitations, orthopnea, paroxysmal nocturnal dyspnea, edema, light headedness, other Gastrointestinal: negative: Nausea, Vomiting, Abdominal Pain, Diarrhea, Constipation, Melena, Hematochezia, Other - Medications/Allergies Allergies/Adverse Reactions: Allergies Allergy/AdvReac Type Severity Reaction Status Date / Time codeine Allergy Verified 01/11/14 20:16 Medications: Current Medications Acidophilus (Floranex) 1 tab PO TID [facility] Last Admin: 09/30/17 18:01 Dose: 1 tab Aspirin (Aspirin Chewable) 81 mg PO DAILY [facility] Last Admin: 09/30/17 09:23 Dose: 81 mg Benzonatate (Tessalon) 200 mg PO TIDPRN PRN PRN Reason: Cough Calcium Carbonate (Tums) 1,000 mg PO Q4H PRN PRN Reason: Heartburn or Indigestion Diltiazem HCl (Cardizem) 30 mg PO Q6H [facility] Last Admin: 09/30/17 18:10 Dose: 30 mg Furosemide (Lasix) 20 mg PO DAILY [facility] Last Admin: 09/30/17 09:23 Dose: 20 mg Hydralazine HCl (Apresoline) 10 mg SLOW IVP Q4H PRN PRN Reason: SBP Greater Than 180 Piperacillin Sod/Tazobactam (Sod 3.375 gm/ Sodium Chloride) 100 mls @ 200 mls/ hr IVPB Q6HR [facility] Last Admin: 09/30/17 18:06 Dose: 100 mls Levothyroxine Sodium (Synthroid) 75 mcg PO 0600 [facility] Last Admin: 09/30/17 05:17 Dose: 75 mcg Miscellaneous Medication (Pharmacy To Dose) 1 each IVPB PRN PRN PRN Reason: Pharmacy to dose Nadolol (Corgard) 40 mg PO DAILY [facility] Last Admin: 09/30/17 09:24 Dose: 40 mg Ondansetron HCl (Zofran Odt) 4 mg PO Q6H PRN PRN Reason: Nausea/Vomiting Ondansetron HCl (Zofran) 4 mg IVP Q6H PRN PRN Reason: Nausea/Vomiting Pantoprazole Sodium (Protonix) 40 mg PO DAILY [facility] Last Admin: 09/30/17 09:24 Dose: 40 mg Simvastatin (Zocor) 5 mg PO HS [facility] Last Admin: 09/29/17 21:04 Dose: 5 mg Sodium Chloride (Flush - Normal Saline) 10 ml IVF Q12HR [facility] Last Admin: 09/30/17 09:24 Dose: 10 ml Sodium Chloride (Flush - Normal Saline) 10 ml IVF PRN PRN PRN Reason: Saline Flush Last Admin: 09/30/17 05:18 Dose: 10 ml Tramadol HCl (Ultram) 50 mg PO Q4H PRN PRN Reason: Pain Last Admin: 09/27/17 20:58 Dose: 50 mg
[2017-09-30] MEDS: Simvastatin 5 MG TAB PO SCH (22:18)
[2017-10-01 05:29] LABS: #Eosinphils 0.1 thou/uL (0.0-0.7); #Lymphocytes 2.5 thou/uL (1.20-3.40); #Neutrophils 5.8 thou/uL (1.40-6.50); %Eosinophils 0.8 % (0.0-10.0); %Lymphocytes 26.5 % (21.0-51.0); %Monocytes 10.2 % (0.0-10.0); %Neutrophils 62.5 % (42.0-75.0); Hemoglobin 14.3 g/dL (12.0-16.0); Mean Corpuscular HGB CONC 32.3 g/dL (32.0-36.0); Mean Corpuscular Hemoglobin 31.1 pg (27.0-31.0); Mean Corpuscular Volume 96.2 fl (81.0-99.0); Mean Platelet Volume 8.1 fL (7.4-10.4); Platelet Count 291 thou/uL (130-400); RBC Distribution Width 12.8 % (11.5-14.5); Red Blood Cell (RBC) Count 4.58 mill/uL (4.20-5.40); White Blood Cell (WBC) Count 9.3 thou/uL (4.8-10.8)
[2017-10-01 05:39] LABS: ALT (SGPT) 28 U/L (8-55); AST (SGOT) 17 U/L (5-34); Albumin 2.8 g/dL (3.4-4.8); Alkaline Phosphatase 151 U/L (40-150); Anion Gap 10 mmol/L (10-20); BUN (Urea Nitrogen) 11 mg/dL (9.8-20.1); Bilirubin, Total 2.5 mg/dL (0.2-1.2); Calc. Creatinine Clearance 62 mL/min (70-130); Calcium 8.3 mg/dL (7.8-10.44); Carbon Dioxide 28 mmol/L (23-31); Chloride 107 mmol/L (98-107); Estimated GFR-MDRD 86; Globulin 3.5 g/dL (2.4-3.5); Glucose 82 mg/dL (83-110); Magnesium 1.7 mg/dL (1.6-2.6); Phosphorus 3.5 mg/dL (2.3-4.7); Potassium 3.4 mmol/L (3.5-5.1); Protein, Total 6.3 g/dL (6.0-8.3); Sodium 142 mmol/L (136-145)
[2017-10-01] MEDS ORDERED: cefTRIAXone\\ROCEPHIN 1 GM in Sterile Water 10 ML SLOW IVP SCH (09:00)
[2017-10-01] MEDS ORDERED: D5 1/2 NS w/20 mEq KCL 1,000 ML IV SCH (10:30)
[2017-10-01 10:37] LABS: Actual Bicarbonate (HCO3a) 25.6 mEq/L (22-26); Base Excess (BEa) 0.2 mEq/L (0 (+/-) 2.5); CO2 Tension 44.6 mmHg (35.0-45.0); Calcium, Ionized 1.1 mmol/L (1.12-1.30); Hematocrit-ABG 42.6 % (36.0-47.0); Hemoglobin (Hb) 13.8 g/dL (12.0-16.0); Puncture Site RRA; pH, Arterial 7.38 (7.35-7.45)
[2017-10-01 11:09] LABS: Troponin I Less than 0.010 ng/mL (< 0.028)
--- NOTE | 2017-10-01 11:33 | RAD ---
SINGLE VIEW OF THE CHEST: Comparison: 03-27-12 History: Code Green. Shortness of breath. FINDINGS: Single view of the chest shows an enlarged cardiomediastinal silhouette. There are small bilateral pl eural effusions with adjacent atelectasis versus infiltrates. Increased interstitial markings are pre sent. IMPRESSION: 1. Cardiomegaly. 2. Bilateral pleural effusions with adjacent atelectasis versus infiltrate. POS: [facility]
[2017-10-01] MEDS: D5 1/2 NS w/20 mEq KCL 1,000 ML IV SCH ×3 (11:49→22:41)
--- NOTE | 2017-10-01 11:49 | CT ---
CT BRAIN WITHOUT COTNRAST: COMPARISON: None. HISTORY: Change of level of consciousness. Evaluate for stroke. TECHNIQUE: Multiple contiguous axial images were obtained in a CT of the brain without contrast. FINDINGS: There are scattered hypodensities in the subcortical and periventricular white matter, likely seconda ry to small-vessel ischemic disease. No large confluent infarction is seen. There is no evidence of hydrocephalus, intracranial hemorrhage, or extraaxial fluid collection. The calvarium and overlying soft tissues are unremarkable. The visualized paranasal sinuses and mast oid air cells are well aerated. IMPRESSION: 1. No evidence of acute intracranial abnormality. 2. Extensive small-vessel ischemic disease. POS: [facility]
[2017-10-01] MEDS: Potassium Chloride 20 MEQ TAB PO SCH (11:50)
[2017-10-01] MEDS: Furosemide 20 MG TAB PO SCH (11:50)
[2017-10-01] MEDS: Lactinex Tablet PO SCH ×3 (11:50→22:42)
[2017-10-01] MEDS: Levothyroxine Sodium 75 MCG TAB PO SCH (11:50)
[2017-10-01] MEDS: Nadolol 40 MG TAB PO SCH (11:50)
--- NOTE | 2017-10-01 11:55 | CT ---
CT GUIDED SUBCUTANEOUS CHOLECYSTOTOMY: HISTORY: Acute cholecystitis. Poor surgical candidate. FINDINGS: After explaining the procedure and answering all questions, limited CT imaging of the upper abdomen w as performed. Anterior right upper quadrant approach as planned. Sterile technique, buffered local anesthesia, CT guidance, and an anterolateral approach were used to carefully advance the tip of 22-g auge needle into the gallbladder lumen. While attempt was made to achieve purchase through the hepat ic parenchyma, the gallbladder anatomy, position, and patient inability to cooperate with respiration of breathing precluded good hepatic parenchyma purchase approach. Acupuncture system technique was then used to place a 0.035 Amplatz wire. The tract was dilated to 8 [place] and an 8 [place] locking loop Uresil catheter was placed in the gallbladder lumen. Approximat jojo 20 cc of thick greenish liquid was aspirated. A portion was sent to pathology for evaluation. T he catheter was secured externally with 2-0 Ethilon suture and left draining to gravity. The patient tolerate the procedure well and was returned in improved condition. IMPRESSION: Technically successful CT-guided cholecystostomy. Pathology is pending.
[2017-10-01] MEDS ORDERED: cefTRIAXone\\ROCEPHIN 1 GM, Syringe 0.4 ML in Sterile Water 9.6 ML SLOW IVP SCH ×2 (12:00→21:00)
[2017-10-01] MEDS ORDERED: Labetalol HCl 100 MG/20 ML VIAL SLOW IVP PRN (12:09)
--- NOTE | 2017-10-01 15:53 | SPC ---
EXAM: LEFT UPPER EXTREMITY PICC LINE PLACEMENT WITH ULTRASOUND GUIDANCE. 10/01/17 HISTORY: Infection. IV access for antibiotics is required. COMPARISON: None. EXPOSURE: 0.8 minutes. 4261 mGy*cm2. FINDINGS: Successful left upper extremity PICC line placement with ultrasound guidance. Distal tip is in the ri ght atrium. Both lumens flush and aspirate without difficulty. Trim length is 42 cm. TECHNIQUE: Consent obtained to perform an ultrasound guided left upper extremity PICC line. Left arm was prepped and draped in the sterile fashion. 1% lidocaine, buffered with sodium bicarbonate was used for local anesthesia. Under ultrasound guidance, micropuncture needle was used to cannulate the basilic vein. A 0.018 inch guide wire was advanced through the needle to the level of the superior vena cava. Under fluoroscopy, wire was advanced to the inferior vena cava to document venous access. Wire was subsequ ently pulled back to the right atrium. Trace is dilated. Dual lumen 5 Telugu catheter was advanced ov er the wire. Wire was removed. Both lumen flush and aspirate without difficulty. Trim length is 42 cm . IMPRESSION: Successful left upper extremity PICC line placement with ultrasound guidance. POS: [facility]
[2017-10-01] MEDS: Meropenem 1 GM in Sodium Chloride 0.9% 100 ML IVPB SCH ×2 (16:15→22:42)
[2017-10-01 18:31] LABS: Bilirubin Moderate (Negative); Clarity CLEAR (Clear); Glucose, Urine (Dipstick) Negative (Negative); Leukocyte Trace (Negative); Nitrite Negative (Negative); Protein, Urine (Dipstick) 30 mg/dL (Neg-Trace); Specific Gravity, Urine 1.031 (1.002-1.036)
[2017-10-01 18:34] LABS: Bacteria/HPF None Seen HPF (None Seen); Hyaline Casts/LPF 0-3 HYALINE CAST LPF (0-3 Hyaline); Squamous Epithelial 0-3 HPF (0-3); WBC/HPF 0-3 HPF (0-3)
[2017-10-01 18:44] LABS: Blood, Urine Trace (Negative)
[2017-10-01] MEDS ORDERED: cefTRIAXone\\ROCEPHIN 1 GM in Sodium Chloride 0.9% 100 ML IVPB SCH (21:00)
--- NOTE | 2017-10-01 21:01 | PDOC.PN ---
- Subjective Encounter Start Date: 10/01/17 Encounter Start Time: 10:00 -: non-verbal Patient seen and examined. Mental worsened overnight. Now not following commands. - Objective Resuscitation Status: Resuscitation Status DNR:Do Not Resuscitate MAR Reviewed: Yes Vital Signs & Weight: Vital Signs (12 hours) Temp Temp Pulse Pulse Resp BP BP 10/01/17 16:00 97.3 F L 97 20 134/84 10/01/17 10:24 97.6 F 96 136/83 Pulse Ox Pulse Ox 10/01/17 16:00 96 10/01/17 10:24 95 Weight Admit Weight 145 lb 4 oz Weight 145 lb 4 oz I&O: 09/30/17 10/01/17 10/02/17 06:59 06:59 06:59 Intake Total 1610 100 500 Output Total 2895 980 870 Balance -1285 -880 -370 Result Diagrams: 10/01/17 04:49 10/01/17 04:49 Additional Labs: Accuchecks 10/01/17 10/01/17 10/01/17 20:19 16:09 10:33 POC Glucose 133 H 86 74 Radiology Reviewed by me: Yes (CXR - ?infiltrate, CT brain - neg) Phys Exam - Physical Examination Pt is encephalopathic Neck: no JVD Respiratory: no wheezing, no rhonchi Scat rales at bases, Symmetrical Cardiovascular: RRR, no rub No heaves/pulsations Gastrointestinal: soft, non-tender, no distention, positive bowel sounds Musculoskeletal: no edema Neuro/Psych - pt is not following commands, No hypertonia/rigidity Skin: no rash Dx/Plan - Plan plan discussed w/ family, PT/OT, certified social workers in health care, respiratory therapy, DVT proph w/lovenox, DVT proph w/SCDs IMPRESSION: 1. Sepsis with acute organ dysfunction duet to acute cholangitis/?acute cholecystitis. 2. Toxic Metabolic Encephalopathy - multifactorial 3. ?Aspiration Pneumonia 4. Chronic atrial fibrillation 5. Hypertension. 6. 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 STAGE I (Present of admission) 7. Hypokalemia / Other issues per previous notes PLAN: * Code green called due to worsening mentation - CT brain negative, CXR ? infiltrate * Resume anticoag for Afib - I d/w Dr Gama who agrees with anticoag initiation * PICC line placement * Change Atbx to Meropenem * Stat labs ordered. * AM labs * DC planning * Surg following Review of Systems - Review of Systems Other: Cannot obtain due to current mentation - Medications/Allergies Allergies/Adverse Reactions: Allergies Allergy/AdvReac Type Severity Reaction Status Date / Time codeine Allergy Verified 01/11/14 20:16 Medications: Current Medications Acidophilus (Floranex) 1 tab PO TID [facility] 234 BEDS AT [facility] Last Admin: 10/01/17 15:01 Dose: Not Given Aspirin (Aspirin Chewable) 81 mg PO DAILY [facility] 234 BEDS AT [facility] Last Admin: 10/01/17 11:50 Dose: Not Given Benzonatate (Tessalon) 200 mg PO TIDPRN PRN PRN Reason: Cough Calcium Carbonate (Tums) 1,000 mg PO Q4H PRN PRN Reason: Heartburn or Indigestion Enoxaparin Sodium (Lovenox) 60 mg SC 0900,2100 COUNTS INCLUDE 234 BEDS AT THE [facility] Hydralazine HCl (Apresoline) 10 mg SLOW IVP Q4H PRN PRN Reason: SBP Greater Than 180 Potassium Chloride/Dextrose/Sod Cl (D5 1/2 Ns W/20 Meq Kcl) 1,000 mls @ 125 mls /hr IV .Q8H COUNTS INCLUDE 234 BEDS AT THE [facility] Last Admin: 10/01/17 18:43 Dose: Not Given Meropenem 1 gm/ Sodium (Chloride) 100 mls @ 200 mls/hr IVPB Q8HR [facility]S INCLUDE 234 BEDS AT THE [facility] Last Admin: 10/01/17 16:15 Dose: 100 mls Labetalol HCl (Normodyne) 10 mg SLOW IVP Q4H PRN PRN Reason: Systolic BP > 160 Levothyroxine Sodium (Synthroid) 40 mcg IVP 0600 COUNTS INCLUDE 234 BEDS AT THE [facility] Miscellaneous Medication (Pharmacy To Dose) 1 each IVPB PRN PRN PRN Reason: Pharmacy to dose Nadolol (Corgard) 40 mg PO DAILY [facility]CLUDE 234 BEDS AT [facility] Last Admin: 10/01/17 11:50 Dose: Not Given Ondansetron HCl (Zofran Odt) 4 mg PO Q6H PRN PRN Reason: Nausea/Vomiting Ondansetron HCl (Zofran) 4 mg IVP Q6H PRN PRN Reason: Nausea/Vomiting Pantoprazole Sodium (Protonix) 40 mg IVP DAILY [facility]CLUDE 234 BEDS AT [facility] Potassium Chloride (K-Dur) 20 meq PO QAM-WM COUNTS INCLUDE 234 BEDS AT THE [facility] Last Admin: 10/01/17 11:50 Dose: Not Given Simvastatin (Zocor) 5 mg PO HS [facility] Last Admin: 09/30/17 22:18 Dose: Not Given Sodium Chloride (Flush - Normal Saline) 10 ml IVF Q12HR [facility] Last Admin: 10/01/17 11:51 Dose: 10 ml Sodium Chloride (Flush - Normal Saline) 10 ml IVF PRN PRN PRN Reason: Saline Flush Last Admin: 09/30/17 05:18 Dose: 10 ml Tramadol HCl (Ultram) 50 mg PO Q4H PRN PRN Reason: Pain Last Admin: 09/27/17 20:58 Dose: 50 mg
[2017-10-01] MEDS: Enoxaparin Sodium 60 MG/0.6 ML SYRINGE SC SCH (22:42)
[2017-10-01] MEDS: Simvastatin 5 MG TAB PO SCH (22:42)
[2017-10-02] MEDS: Meropenem 1 GM in Sodium Chloride 0.9% 100 ML IVPB SCH ×3 (06:10→21:30)
[2017-10-02] MEDS: Levothyroxine 100 MCG SDV IVP SCH (06:34)
[2017-10-02] MEDS: Enoxaparin Sodium 60 MG/0.6 ML SYRINGE SC SCH ×2 (09:20→20:36)
[2017-10-02] MEDS: Pantoprazole 40 MG VIAL IVP SCH (09:21)
[2017-10-02] MEDS: D5 1/2 NS w/20 mEq KCL 1,000 ML IV SCH ×3 (09:22→18:34)
[2017-10-02 10:13] LABS: #Eosinphils 0.1 thou/uL (0.0-0.7); #Lymphocytes 1.8 thou/uL (1.20-3.40); #Monocytes 0.8 thou/uL (0.11-0.59); #Neutrophils 5.5 thou/uL (1.40-6.50); %Basophils 0.1 % (0.0-1.0); %Eosinophils 1.1 % (0.0-10.0); %Lymphocytes 21.8 % (21.0-51.0); %Monocytes 10.1 % (0.0-10.0); %Neutrophils 66.9 % (42.0-75.0); Hemoglobin 14.6 g/dL (12.0-16.0); Mean Corpuscular Hemoglobin 32.2 pg (27.0-31.0); Mean Platelet Volume 8.2 fL (7.4-10.4); Platelet Count 322 thou/uL (130-400); RBC Distribution Width 13.5 % (11.5-14.5); Red Blood Cell (RBC) Count 4.54 mill/uL (4.20-5.40); White Blood Cell (WBC) Count 8.2 thou/uL (4.8-10.8)
[2017-10-02] MEDS: Potassium Chloride 20 MEQ TAB PO SCH (10:35)
[2017-10-02] MEDS: Lactinex Tablet PO SCH ×3 (10:36→20:37)
[2017-10-02] MEDS: Nadolol 40 MG TAB PO SCH (10:36)
[2017-10-02 10:40] LABS: ALT (SGPT) 21 U/L (8-55); AST (SGOT) 15 U/L (5-34); Albumin 2.7 g/dL (3.4-4.8); Alkaline Phosphatase 148 U/L (40-150); Anion Gap 11 mmol/L (10-20); BUN (Urea Nitrogen) 8 mg/dL (9.8-20.1); Bilirubin, Total 1.8 mg/dL (0.2-1.2); CRP (Inflammatory) 5.51 mg/dL (= or < 0.5); Calc. Creatinine Clearance 70 mL/min (70-130); Carbon Dioxide 24 mmol/L (23-31); Chloride 108 mmol/L (98-107); Estimated GFR-MDRD Greater than 90; Globulin 3.5 g/dL (2.4-3.5); Glucose 161 mg/dL (83-110); Magnesium 1.8 mg/dL (1.6-2.6); Phosphorus 2.3 mg/dL (2.3-4.7); Potassium 4.3 mmol/L (3.5-5.1); Protein, Total 6.2 g/dL (6.0-8.3); Sodium 139 mmol/L (136-145)
--- NOTE | 2017-10-02 17:03 | PDOC.PN ---
- Subjective Encounter Start Date: 10/02/17 Encounter Start Time: 10:30 Patient seen and examined. No new complaints. No overnight events. Mentation improving. Awake - Objective Resuscitation Status: Resuscitation Status DNR:Do Not Resuscitate MAR Reviewed: Yes Vital Signs & Weight: Vital Signs (12 hours) Temp Pulse Resp BP Pulse Ox 10/02/17 16:30 97.6 F 99 16 150/101 H 96 10/02/17 12:36 97.2 F L 114 H 20 149/94 H 97 10/02/17 08:00 97.3 F L 99 20 165/95 H 97 Weight Admit Weight 145 lb 4 oz Weight 145 lb 4 oz I&O: 10/01/17 10/02/17 10/03/17 06:59 06:59 06:59 Intake Total 100 500 Output Total 980 870 175 Balance -880 -370 -175 Result Diagrams: 10/02/17 09:58 10/02/17 09:58 Additional Labs: Accuchecks 10/02/17 10/02/17 10/02/17 15:59 11:38 06:51 POC Glucose 158 H 154 H 160 H 10/01/17 20:19 POC Glucose 133 H Phys Exam - Physical Examination Constitutional: NAD Respiratory: no wheezing, no rhonchi Scat rales at bases Cardiovascular: RRR, no rub Gastrointestinal: soft, non-tender, positive bowel sounds Musculoskeletal: no edema Neurological: moves all 4 limbs Awake Dx/Plan - Plan DVT proph w/lovenox, DVT proph w/SCDs IMPRESSION: 1. Sepsis with acute organ dysfunction due to acute cholangitis/?acute cholecystitis s/p Cholecystomy 2. Toxic Metabolic Encephalopathy - multifactorial 3. ?Aspiration Pneumonia 4. Chronic atrial fibrillation - on Lovenox 5. Hypertension. 6. 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 STAGE I (Present of admission) 7. Hypokalemia / s/p Code green/Other issues per previous notes PLAN: * s/p PICC line * Cont Meropenem * AM labs * DC planning * Surg/GI following * DC planning in 24-48 hr if stable Review of Systems - Review of Systems Other: Cannot be reliably obtained due to current mentation - Medications/Allergies Allergies/Adverse Reactions: Allergies Allergy/AdvReac Type Severity Reaction Status Date / Time codeine Allergy Verified 01/11/14 20:16 Medications: Current Medications Acidophilus (Floranex) 1 tab PO TID [facility] Last Admin: 10/02/17 15:29 Dose: Not Given Aspirin (Aspirin Chewable) 81 mg PO DAILY [facility] Last Admin: 10/02/17 10:36 Dose: Not Given Benzonatate (Tessalon) 200 mg PO TIDPRN PRN PRN Reason: Cough Calcium Carbonate (Tums) 1,000 mg PO Q4H PRN PRN Reason: Heartburn or Indigestion Enoxaparin Sodium (Lovenox) 60 mg SC 0900,2100 [facility] Last Admin: 10/02/17 09:20 Dose: 60 mg Hydralazine HCl (Apresoline) 10 mg SLOW IVP Q4H PRN PRN Reason: SBP Greater Than 180 Meropenem 1 gm/ Sodium (Chloride) 100 mls @ 200 mls/hr IVPB Q8HR [facility] Last Admin: 10/02/17 14:05 Dose: 100 mls Potassium Chloride/Dextrose/Sod Cl (D5 1/2 Ns W/20 Meq Kcl) 1,000 mls @ 100 mls /hr IV .Q10H [facility] Labetalol HCl (Normodyne) 10 mg SLOW IVP Q4H PRN PRN Reason: Systolic BP > 160 Levothyroxine Sodium (Synthroid) 40 mcg IVP 0600 [facility] Last Admin: 10/02/17 06:34 Dose: 40 mcg Miscellaneous Medication (Pharmacy To Dose) 1 each IVPB PRN PRN PRN Reason: Pharmacy to dose Nadolol (Corgard) 40 mg PO DAILY [facility] Last Admin: 10/02/17 10:36 Dose: Not Given Ondansetron HCl (Zofran Odt) 4 mg PO Q6H PRN PRN Reason: Nausea/Vomiting Ondansetron HCl (Zofran) 4 mg IVP Q6H PRN PRN Reason: Nausea/Vomiting Pantoprazole Sodium (Protonix) 40 mg IVP DAILY [facility] Last Admin: 10/02/17 09:21 Dose: 40 mg Potassium Chloride (K-Dur) 20 meq PO QAM-WM [facility] Last Admin: 10/02/17 10:35 Dose: Not Given Simvastatin (Zocor) 5 mg PO HS [facility] Last Admin: 10/01/17 22:42 Dose: Not Given Sodium Chloride (Flush - Normal Saline) 10 ml IVF Q12HR [facility] Last Admin: 10/02/17 09:22 Dose: 10 ml Sodium Chloride (Flush - Normal Saline) 10 ml IVF PRN PRN PRN Reason: Saline Flush Last Admin: 09/30/17 05:18 Dose: 10 ml Tramadol HCl (Ultram) 50 mg PO Q4H PRN PRN Reason: Pain Last Admin: 09/27/17 20:58 Dose: 50 mg
[2017-10-02] MEDS: Simvastatin 5 MG TAB PO SCH (20:37)
[2017-10-03] MEDS: Levothyroxine 100 MCG SDV IVP SCH (05:08)
[2017-10-03] MEDS: D5 1/2 NS w/20 mEq KCL 1,000 ML IV SCH ×3 (05:08→15:29)
[2017-10-03] MEDS: Meropenem 1 GM in Sodium Chloride 0.9% 100 ML IVPB SCH ×3 (05:15→21:05)
[2017-10-03] MEDS: Nadolol 40 MG TAB PO SCH (07:54)
[2017-10-03] MEDS: Pantoprazole 40 MG VIAL IVP SCH (07:54)
[2017-10-03] MEDS: Lactinex Tablet PO SCH ×3 (07:54→20:58)
[2017-10-03] MEDS: Potassium Chloride 20 MEQ TAB PO SCH (07:54)
[2017-10-03 07:57] LABS: #Eosinphils 0.1 thou/uL (0.0-0.7); #Lymphocytes 2.4 thou/uL (1.20-3.40); #Monocytes 0.7 thou/uL (0.11-0.59); %Basophils 0.5 % (0.0-1.0); %Lymphocytes 33.3 % (21.0-51.0); %Monocytes 10.1 % (0.0-10.0); Hemoglobin 14.2 g/dL (12.0-16.0); Mean Corpuscular HGB CONC 30.6 g/dL (32.0-36.0); Mean Corpuscular Hemoglobin 30.9 pg (27.0-31.0); Mean Platelet Volume 8.5 fL (7.4-10.4); Platelet Count 383 thou/uL (130-400); RBC Distribution Width 13.3 % (11.5-14.5); Red Blood Cell (RBC) Count 4.59 mill/uL (4.20-5.40); White Blood Cell (WBC) Count 7.2 thou/uL (4.8-10.8)
[2017-10-03 07:59] LABS: ALT (SGPT) 21 U/L (8-55); AST (SGOT) 23 U/L (5-34); Albumin 2.6 g/dL (3.4-4.8); Alkaline Phosphatase 151 U/L (40-150); Anion Gap 12 mmol/L (10-20); BUN (Urea Nitrogen) 6 mg/dL (9.8-20.1); Bilirubin, Total 1.8 mg/dL (0.2-1.2); Calc. Creatinine Clearance 74 mL/min (70-130); Calcium 8.1 mg/dL (7.8-10.44); Carbon Dioxide 22 mmol/L (23-31); Chloride 107 mmol/L (98-107); Estimated GFR-MDRD Greater than 90; Globulin 3.5 g/dL (2.4-3.5); Glucose 128 mg/dL (83-110); Magnesium 1.8 mg/dL (1.6-2.6); Potassium 4.2 mmol/L (3.5-5.1); Protein, Total 6.1 g/dL (6.0-8.3); Sodium 137 mmol/L (136-145)
[2017-10-03] MEDS ORDERED: Potassium Phosphate 12 MMOL, Admixture Fee 1 EACH in Sodium Chloride 0.9% 100 ML IVPB SCH (09:30)
[2017-10-03] MEDS: Enoxaparin Sodium 60 MG/0.6 ML SYRINGE SC SCH ×2 (10:16→20:58)
--- NOTE | 2017-10-03 11:14 | RAD ---
SINGLE VIEW CHEST: Date: 10/03/17 COMPARISON: 10/01/17. HISTORY: Shortness of breath. Pneumonia. FINDINGS: Single view of the chest shows an enlarged cardiomediastinal silhouette. There are small bilateral pl eural effusions. Atelectasis versus an infiltrate is seen in the right lower lobe. There is a left up per extremity PICC line with its tip in the superior vena cava. Atherosclerotic calcifications are se en in the aorta. IMPRESSION: 1. Bilateral pleural effusions. 2. Cardiomegaly. POS: [place]
--- NOTE | 2017-10-03 20:13 | PDOC.PN ---
- Subjective Encounter Start Date: 10/03/17 Encounter Start Time: 14:30 Patient seen and examined. No new complaints. No overnight events - Objective Resuscitation Status: Resuscitation Status DNR:Do Not Resuscitate MAR Reviewed: Yes Vital Signs & Weight: Vital Signs (12 hours) Temp Pulse Resp BP Pulse Ox 10/03/17 19:39 97.5 F L 107 H 20 131/85 98 10/03/17 11:47 97.2 F L 97 20 127/84 96 Weight Admit Weight 145 lb 4 oz Weight 145 lb 4 oz I&O: 10/02/17 10/03/17 10/04/17 06:59 06:59 06:59 Intake Total 500 1550 600 Output Total 870 825 375 Balance -370 725 225 Result Diagrams: 10/04/17 03:55 10/04/17 03:55 Additional Labs: Accuchecks 10/03/17 10/03/17 10/03/17 17:08 11:48 04:42 POC Glucose 111 H 110 124 H 10/02/17 20:47 POC Glucose 144 H Radiology Reviewed by me: Yes (CXR - no new infiltrate) Phys Exam - Physical Examination Constitutional: NAD Respiratory: no wheezing, no rhonchi Cardiovascular: RRR, no rub Gastrointestinal: soft, non-tender, positive bowel sounds Musculoskeletal: no edema Neurological: moves all 4 limbs Dx/Plan - Plan DVT proph w/lovenox, DVT proph w/SCDs IMPRESSION: 1. Sepsis with acute organ dysfunction due to acute cholangitis/acute cholecystitis s/p Cholecystomy 2. Toxic Metabolic Encephalopathy - multifactorial - improving 3. ?Aspiration Pneumonia 4. Chronic atrial fibrillation - on Lovenox 5. Hypertension. 6. 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 STAGE I (Present of admission) 7. Hypokalemia / s/p Code green/Other issues per previous notes PLAN: * Poor appetite * Will change Lovenox to Eliquis when able to take PO * s/p PICC line * Cont Meropenem * AM labs * DC planning * Surg/GI following * DC planning in 24-48 hr if stable * Reducce IVF Review of Systems - Review of Systems Other: Cannot obtain due to current cognition - Medications/Allergies Allergies/Adverse Reactions: Allergies Allergy/AdvReac Type Severity Reaction Status Date / Time codeine Allergy Verified 01/11/14 20:16 Medications: Current Medications Acidophilus (Floranex) 1 tab PO TID [facility] Last Admin: 10/03/17 14:57 Dose: 1 tab Aspirin (Aspirin Chewable) 81 mg PO DAILY [facility] Last Admin: 10/03/17 07:54 Dose: 81 mg Benzonatate (Tessalon) 200 mg PO TIDPRN PRN PRN Reason: Cough Calcium Carbonate (Tums) 1,000 mg PO Q4H PRN PRN Reason: Heartburn or Indigestion Enoxaparin Sodium (Lovenox) 60 mg SC 0900,2100 [facility] Last Admin: 10/03/17 10:16 Dose: 60 mg Hydralazine HCl (Apresoline) 10 mg SLOW IVP Q4H PRN PRN Reason: SBP Greater Than 180 Meropenem 1 gm/ Sodium (Chloride) 100 mls @ 200 mls/hr IVPB Q8HR [facility] Last Admin: 10/03/17 14:56 Dose: 100 mls Potassium Chloride/Dextrose/Sod Cl (D5 1/2 Ns W/20 Meq Kcl) 1,000 mls @ 50 mls/ hr IV .Q20H [facility] Last Admin: 10/03/17 15:29 Dose: Not Given Labetalol HCl (Normodyne) 10 mg SLOW IVP Q4H PRN PRN Reason: Systolic BP > 160 Levothyroxine Sodium (Synthroid) 40 mcg IVP 0600 [facility] Last Admin: 10/03/17 05:08 Dose: 40 mcg Miscellaneous Medication (Pharmacy To Dose) 1 each IVPB PRN PRN PRN Reason: Pharmacy to dose Nadolol (Corgard) 40 mg PO DAILY [facility] Last Admin: 10/03/17 07:54 Dose: 40 mg Ondansetron HCl (Zofran Odt) 4 mg PO Q6H PRN PRN Reason: Nausea/Vomiting Ondansetron HCl (Zofran) 4 mg IVP Q6H PRN PRN Reason: Nausea/Vomiting Pantoprazole Sodium (Protonix) 40 mg IVP DAILY [facility] Last Admin: 10/03/17 07:54 Dose: 40 mg Simvastatin (Zocor) 5 mg PO HS [facility] Last Admin: 10/02/17 20:37 Dose: 5 mg Sodium Chloride (Flush - Normal Saline) 10 ml IVF Q12HR [facility] Last Admin: 10/03/17 07:59 Dose: Not Given Sodium Chloride (Flush - Normal Saline) 10 ml IVF PRN PRN PRN Reason: Saline Flush Last Admin: 09/30/17 05:18 Dose: 10 ml Tramadol HCl (Ultram) 50 mg PO Q4H PRN PRN Reason: Pain Last Admin: 09/27/17 20:58 Dose: 50 mg
[2017-10-03] MEDS: Simvastatin 5 MG TAB PO SCH (20:58)
[2017-10-04] MEDS: D5 1/2 NS w/20 mEq KCL 1,000 ML IV SCH (03:30)
[2017-10-04 04:34] LABS: #Eosinphils 0.1 thou/uL (0.0-0.7); #Lymphocytes 2.9 thou/uL (1.20-3.40); #Monocytes 0.8 thou/uL (0.11-0.59); #Neutrophils 3.9 thou/uL (1.40-6.50); %Basophils 0.2 % (0.0-1.0); %Eosinophils 0.7 % (0.0-10.0); %Lymphocytes 37.9 % (21.0-51.0); %Monocytes 10.6 % (0.0-10.0); %Neutrophils 50.7 % (42.0-75.0); Hemoglobin 14.7 g/dL (12.0-16.0); Mean Corpuscular HGB CONC 32.8 g/dL (32.0-36.0); Mean Corpuscular Volume 97.5 fl (81.0-99.0); Mean Platelet Volume 7.7 fL (7.4-10.4); Platelet Count 382 thou/uL (130-400); RBC Distribution Width 13.8 % (11.5-14.5); White Blood Cell (WBC) Count 7.7 thou/uL (4.8-10.8)
[2017-10-04] MEDS: Levothyroxine 100 MCG SDV IVP SCH (05:11)
[2017-10-04] MEDS: Meropenem 1 GM in Sodium Chloride 0.9% 100 ML IVPB SCH ×2 (05:15→14:55)
[2017-10-04 05:45] LABS: Albumin 2.7 g/dL (3.4-4.8); Anion Gap 12 mmol/L (10-20); BUN (Urea Nitrogen) 7 mg/dL (9.8-20.1); BUN/Creatinine Ratio 12.28; Calc. Creatinine Clearance 71 mL/min (70-130); Calcium 8.3 mg/dL (7.8-10.44); Carbon Dioxide 21 mmol/L (23-31); Chloride 107 mmol/L (98-107); Estimated GFR-MDRD Greater than 90; Glucose 107 mg/dL (83-110); Phosphorus 2.4 mg/dL (2.3-4.7); Potassium 4.7 mmol/L (3.5-5.1); Sodium 135 mmol/L (136-145)
[2017-10-04] MEDS: Pantoprazole 40 MG VIAL IVP SCH (09:47)
[2017-10-04] MEDS: Nadolol 40 MG TAB PO SCH (09:47)
[2017-10-04] MEDS: Lactinex Tablet PO SCH ×3 (09:47→22:38)
[2017-10-04] MEDS ORDERED: Megestrol Acetate 800 MG/20 ML UDCUP PO SCH (12:30)
[2017-10-04] MEDS: Enoxaparin Sodium 60 MG/0.6 ML SYRINGE SC SCH ×2 (12:53→22:38)
[2017-10-04] MEDS: traMADol HCl 50 MG TAB PO PRN (12:53)
--- NOTE | 2017-10-04 20:34 | PDOC.PN ---
- Subjective Encounter Start Date: 10/04/17 Encounter Start Time: 09:45 Patient seen and examined. No new complaints. No overnight events. Poor appetite - Objective Resuscitation Status: Resuscitation Status DNR:Do Not Resuscitate MAR Reviewed: Yes Vital Signs & Weight: Vital Signs (12 hours) Temp Pulse Resp BP Pulse Ox 10/04/17 11:41 97.6 F 100 18 109/72 93 L Weight Admit Weight 145 lb 4 oz Weight 145 lb 4 oz I&O: 10/03/17 10/04/17 10/05/17 06:59 06:59 06:59 Intake Total 1550 1380 75 Output Total 905 800 50 Balance 645 580 25 Result Diagrams: 10/04/17 03:55 10/04/17 03:55 Additional Labs: Accuchecks 10/04/17 10/04/17 10/04/17 16:29 11:41 05:20 POC Glucose 93 107 92 10/03/17 21:06 POC Glucose 116 H Phys Exam - Physical Examination Constitutional: NAD Respiratory: no wheezing, no rhonchi Scat rales at bases Cardiovascular: RRR, no rub Gastrointestinal: soft, non-tender, positive bowel sounds Musculoskeletal: no edema Neurological: non-focal, moves all 4 limbs Dx/Plan - Plan DVT proph w/SCDs IMPRESSION: 1. Sepsis with acute organ dysfunction due to acute cholangitis/acute cholecystitis s/p Cholecystomy 2. Toxic Metabolic Encephalopathy - multifactorial - improving 3. ?Aspiration Pneumonia 4. Chronic atrial fibrillation - on Lovenox 5. Hypertension. 6. 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 STAGE I (Present of admission) 7. Hypokalemia / s/p Code green/ Other issues per previous notes PLAN: * Cont Meropenem * AM labs * DC planning when appetite improves * Cont IVF due to poor appetite * Cont to monitor * Cont [place] for now Review of Systems - Review of Systems Respiratory: negative: Cough, Dry, Shortness of Breath, Hemoptysis, SOB with Excertion, Pleuritic Pain, Sputum, Wheezing Cardiovascular: negative: chest pain, palpitations, orthopnea, paroxysmal nocturnal dyspnea, edema, light headedness, other - Medications/Allergies Allergies/Adverse Reactions: Allergies Allergy/AdvReac Type Severity Reaction Status Date / Time codeine Allergy Verified 07/21/14 20:16 Medications: Current Medications Acidophilus (Floranex) 1 tab PO TID [facility] Last Admin: 10/04/17 15:11 Dose: Not Given Aspirin (Aspirin Chewable) 81 mg PO DAILY [facility] Last Admin: 10/04/17 09:47 Dose: 81 mg Benzonatate (Tessalon) 200 mg PO TIDPRN PRN PRN Reason: Cough Calcium Carbonate (Tums) 1,000 mg PO Q4H PRN PRN Reason: Heartburn or Indigestion Enoxaparin Sodium (Lovenox) 60 mg SC 0900,2100 [facility] Last Admin: 10/04/17 12:53 Dose: 60 mg Hydralazine HCl (Apresoline) 10 mg SLOW IVP Q4H PRN PRN Reason: SBP Greater Than 180 Potassium Chloride/Dextrose/Sod Cl (D5 1/2 Ns W/20 Meq Kcl) 1,000 mls @ 50 mls/ hr IV .Q20H [facility] Last Admin: 10/04/17 03:30 Dose: 1,000 mls Meropenem 1 gm/ Device 50 mls @ 100 mls/hr IVPB Q8HR [facility] Labetalol HCl (Normodyne) 10 mg SLOW IVP Q4H PRN PRN Reason: Systolic BP > 160 Levothyroxine Sodium (Synthroid) 40 mcg IVP 0600 [facility] Last Admin: 10/04/17 05:11 Dose: 40 mcg Megestrol Acetate (Megace) 400 mg PO BID [facility] Miscellaneous Medication (Pharmacy To Dose) 1 each IVPB PRN PRN PRN Reason: Pharmacy to dose Nadolol (Corgard) 40 mg PO DAILY [facility] Last Admin: 10/04/17 09:47 Dose: 40 mg Ondansetron HCl (Zofran Odt) 4 mg PO Q6H PRN PRN Reason: Nausea/Vomiting Ondansetron HCl (Zofran) 4 mg IVP Q6H PRN PRN Reason: Nausea/Vomiting Pantoprazole Sodium (Protonix) 40 mg IVP DAILY [facility] Last Admin: 10/04/17 09:47 Dose: 40 mg Simvastatin (Zocor) 5 mg PO HS [facility] Last Admin: 10/03/17 20:58 Dose: 5 mg Sodium Chloride (Flush - Normal Saline) 10 ml IVF Q12HR [facility] Last Admin: 10/04/17 09:48 Dose: Not Given Sodium Chloride (Flush - Normal Saline) 10 ml IVF PRN PRN PRN Reason: Saline Flush Last Admin: 09/30/17 05:18 Dose: 10 ml Tramadol HCl (Ultram) 50 mg PO Q4H PRN PRN Reason: Pain Last Admin: 10/04/17 12:53 Dose: 50 mg
[2017-10-04] MEDS: MEROPENEM 1 GM/50 ML 1 GM in Premix Bag 1 BAG IVPB SCH (22:38)
[2017-10-04] MEDS: Simvastatin 5 MG TAB PO SCH (22:38)
[2017-10-04] MEDS: Megestrol Acetate 800 MG/20 ML UDCUP PO SCH (22:38)
[2017-10-05] MEDS: Levothyroxine 100 MCG SDV IVP SCH (06:14)
[2017-10-05] MEDS: MEROPENEM 1 GM/50 ML 1 GM in Premix Bag 1 BAG IVPB SCH ×3 (06:14→21:16)
[2017-10-05] MEDS: D5 1/2 NS w/20 mEq KCL 1,000 ML IV SCH ×2 (08:00→21:19)
[2017-10-05] MEDS: Megestrol Acetate 800 MG/20 ML UDCUP PO SCH ×2 (08:03→21:17)
[2017-10-05] MEDS: Nadolol 40 MG TAB PO SCH (08:04)
[2017-10-05] MEDS: Enoxaparin Sodium 60 MG/0.6 ML SYRINGE SC SCH ×2 (08:04→21:16)
[2017-10-05] MEDS: Lactinex Tablet PO SCH ×3 (08:04→21:17)
[2017-10-05] MEDS: Pantoprazole 40 MG VIAL IVP SCH (08:04)
[2017-10-05] MEDS: traMADol HCl 50 MG TAB PO PRN (08:11)
[2017-10-05] MEDS: Simvastatin 5 MG TAB PO SCH (21:17)
--- NOTE | 2017-10-05 21:20 | PDOC.PN ---
- Subjective Encounter Start Date: 10/05/17 Encounter Start Time: 18:30 Patient seen and examined. No new complaints. No overnight events - Objective Resuscitation Status: Resuscitation Status DNR:Do Not Resuscitate MAR Reviewed: Yes Vital Signs & Weight: Vital Signs (12 hours) Temp Pulse Resp BP Pulse Ox 10/05/17 20:00 97.9 F 99 20 149/93 H 96 Weight Admit Weight 145 lb 4 oz Weight 145 lb 4 oz I&O: 10/04/17 10/05/17 10/06/17 06:59 06:59 06:59 Intake Total 1380 75 240 Output Total 800 70 750 Balance 580 5 -510 Result Diagrams: 10/06/17 04:09 10/06/17 04:09 Additional Labs: Accuchecks 10/05/17 10/05/17 10/05/17 19:48 16:17 10:56 POC Glucose 101 133 H 112 H 10/05/17 10/04/17 05:38 20:57 POC Glucose 101 101 Phys Exam - Physical Examination Constitutional: NAD Respiratory: no wheezing, no rhonchi Scat rales at bases Cardiovascular: RRR, no rub Gastrointestinal: soft, non-tender, positive bowel sounds Dx/Plan - Plan DVT proph w/lovenox, DVT proph w/SCDs IMPRESSION: 1. Sepsis with acute organ dysfunction due to acute cholangitis/acute cholecystitis s/p Cholecystomy 2. Toxic Metabolic Encephalopathy - multifactorial - improving 3. ?Aspiration Pneumonia 4. Chronic atrial fibrillation - on Lovenox 5. Hypertension. 6. 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 STAGE I (Present of admission) 7. Hypokalemia / s/p Code green/ Other issues per previous notes PLAN: * Cont Atbx * DC in 1-2 days if appetite improves - Family declines PEG * Cont IVF due to poor appetite * Cont to monitor * Cont current meds as below * Cont wound care Review of Systems - Review of Systems Respiratory: negative: Cough, Dry, Shortness of Breath, Hemoptysis, SOB with Excertion, Pleuritic Pain, Sputum, Wheezing Cardiovascular: negative: chest pain, palpitations, orthopnea, paroxysmal nocturnal dyspnea, edema, light headedness, other - Medications/Allergies Allergies/Adverse Reactions: Allergies Allergy/AdvReac Type Severity Reaction Status Date / Time codeine Allergy Verified 01/11/14 20:16 Medications: Current Medications Acidophilus (Floranex) 1 tab PO TID [facility] Last Admin: 10/05/17 21:17 Dose: Not Given Aspirin (Aspirin Chewable) 81 mg PO DAILY [facility] Last Admin: 10/05/17 08:04 Dose: 81 mg Benzonatate (Tessalon) 200 mg PO TIDPRN PRN PRN Reason: Cough Calcium Carbonate (Tums) 1,000 mg PO Q4H PRN PRN Reason: Heartburn or Indigestion Enoxaparin Sodium (Lovenox) 60 mg SC 0900,2100 [facility] Last Admin: 10/05/17 21:16 Dose: 60 mg Hydralazine HCl (Apresoline) 10 mg SLOW IVP Q4H PRN PRN Reason: SBP Greater Than 180 Potassium Chloride/Dextrose/Sod Cl (D5 1/2 Ns W/20 Meq Kcl) 1,000 mls @ 50 mls/ hr IV .Q20H [facility] Last Admin: 10/05/17 21:19 Dose: 1,000 mls Meropenem 1 gm/ Device 50 mls @ 100 mls/hr IVPB Q8HR [facility] Last Admin: 10/05/17 21:16 Dose: 50 mls Labetalol HCl (Normodyne) 10 mg SLOW IVP Q4H PRN PRN Reason: Systolic BP > 160 Levothyroxine Sodium (Synthroid) 40 mcg IVP 0600 [facility] Last Admin: 10/05/17 06:14 Dose: 40 mcg Megestrol Acetate (Megace) 400 mg PO BID [facility] Last Admin: 10/05/17 21:17 Dose: Not Given Miscellaneous Medication (Pharmacy To Dose) 1 each IVPB PRN PRN PRN Reason: Pharmacy to dose Nadolol (Corgard) 40 mg PO DAILY [facility] Last Admin: 10/05/17 08:04 Dose: 40 mg Ondansetron HCl (Zofran Odt) 4 mg PO Q6H PRN PRN Reason: Nausea/Vomiting Ondansetron HCl (Zofran) 4 mg IVP Q6H PRN PRN Reason: Nausea/Vomiting Pantoprazole Sodium (Protonix) 40 mg IVP DAILY [facility] Last Admin: 10/05/17 08:04 Dose: 40 mg Simvastatin (Zocor) 5 mg PO HS [facility] Last Admin: 10/05/17 21:17 Dose: Not Given Sodium Chloride (Flush - Normal Saline) 10 ml IVF Q12HR [facility] Last Admin: 10/05/17 21:17 Dose: Not Given Sodium Chloride (Flush - Normal Saline) 10 ml IVF PRN PRN PRN Reason: Saline Flush Last Admin: 09/30/17 05:18 Dose: 10 ml Tramadol HCl (Ultram) 50 mg PO Q4H PRN PRN Reason: Pain Last Admin: 10/05/17 08:11 Dose: 50 mg
[2017-10-06 04:52] LABS: Hemoglobin 14.9 g/dL (12.0-16.0); Platelet Count 421 thou/uL (130-400)
[2017-10-06 04:55] LABS: #Basophils 0.1 thou/uL (0.0-0.2); #Eosinphils 0.1 thou/uL (0.0-0.7); #Lymphocytes 2.3 thou/uL (1.20-3.40); #Monocytes 0.8 thou/uL (0.11-0.59); #Neutrophils 3.6 thou/uL (1.40-6.50); %Basophils 0.9 % (0.0-1.0); %Eosinophils 1.1 % (0.0-10.0); %Lymphocytes 33.9 % (21.0-51.0); %Monocytes 12.1 % (0.0-10.0); %Neutrophils 52.1 % (42.0-75.0); Hemoglobin 14.7 g/dL (12.0-16.0); Mean Corpuscular HGB CONC 31.6 g/dL (32.0-36.0); Mean Corpuscular Hemoglobin 31.9 pg (27.0-31.0); Mean Platelet Volume 7.9 fL (7.4-10.4); Platelet Count 419 thou/uL (130-400); RBC Distribution Width 13.7 % (11.5-14.5); Red Blood Cell (RBC) Count 4.61 mill/uL (4.20-5.40); White Blood Cell (WBC) Count 6.9 thou/uL (4.8-10.8)
[2017-10-06 05:26] LABS: ALT (SGPT) 16 U/L (8-55); AST (SGOT) 17 U/L (5-34); Albumin 2.7 g/dL (3.4-4.8); Alkaline Phosphatase 140 U/L (40-150); Anion Gap 9 mmol/L (10-20); BUN (Urea Nitrogen) 4 mg/dL (9.8-20.1); Bilirubin, Total 1.5 mg/dL (0.2-1.2); Calc. Creatinine Clearance 66 mL/min (70-130); Calcium 8.6 mg/dL (7.8-10.44); Carbon Dioxide 31 mmol/L (23-31); Chloride 105 mmol/L (98-107); Estimated GFR-MDRD Greater than 90; Globulin 3.6 g/dL (2.4-3.5); Glucose 106 mg/dL (83-110); Phosphorus 2.7 mg/dL (2.3-4.7); Protein, Total 6.3 g/dL (6.0-8.3); Sodium 141 mmol/L (136-145)
[2017-10-06] MEDS: MEROPENEM 1 GM/50 ML 1 GM in Premix Bag 1 BAG IVPB SCH ×3 (06:04→20:59)
[2017-10-06] MEDS: Levothyroxine 100 MCG SDV IVP SCH (06:04)
[2017-10-06] MEDS: Enoxaparin Sodium 60 MG/0.6 ML SYRINGE SC SCH ×2 (07:48→20:58)
[2017-10-06] MEDS: Pantoprazole 40 MG VIAL IVP SCH (07:48)
[2017-10-06] MEDS: Lactinex Tablet PO SCH ×3 (07:49→20:42)
[2017-10-06] MEDS: Nadolol 40 MG TAB PO SCH (07:49)
[2017-10-06] MEDS: Megestrol Acetate 800 MG/20 ML UDCUP PO SCH ×2 (07:49→20:42)
[2017-10-06] MEDS: Fentanyl 100 MCG/2 ML VIAL SLOW IVP PRN ×2 (09:35→17:34)
[2017-10-06] MEDS: Simvastatin 5 MG TAB PO SCH (20:42)
[2017-10-06] MEDS: D5 1/2 NS w/20 mEq KCL 1,000 ML IV SCH (20:59)
--- NOTE | 2017-10-06 21:45 | PDOC.PN ---
- Subjective Encounter Start Date: 10/06/17 Encounter Start Time: 11:00 Patient seen and examined. No new complaints. No overnight events - Objective Resuscitation Status: Resuscitation Status DNR:Do Not Resuscitate MAR Reviewed: Yes Vital Signs & Weight: Vital Signs (12 hours) Temp Pulse Resp BP Pulse Ox 10/06/17 20:00 97.2 F L 99 20 147/64 H 97 10/06/17 16:02 97.2 F L 110 H 22 H 149/97 H 98 10/06/17 11:10 97.5 F L 95 22 H 156/83 H 96 Weight Admit Weight 145 lb 4 oz Weight 145 lb 4 oz I&O: 10/05/17 10/06/17 10/07/17 06:59 06:59 06:59 Intake Total 75 840 529 Output Total 70 2650 1999 Balance 5 -3035 -1407 Result Diagrams: 10/06/17 04:09 10/06/17 04:09 Additional Labs: Accuchecks 10/06/17 10/06/17 10/06/17 16:05 11:14 05:54 POC Glucose 86 111 H 95 Phys Exam - Physical Examination Constitutional: NAD Respiratory: no wheezing Cardiovascular: RRR, no rub Gastrointestinal: soft, positive bowel sounds Musculoskeletal: no edema Neurological: moves all 4 limbs Psychiatric: A&O x 3 Dx/Plan - Plan DVT proph w/SCDs IMPRESSION: 1. Sepsis with acute organ dysfunction due to acute cholangitis/acute cholecystitis s/p Cholecystomy 2. Toxic Metabolic Encephalopathy - multifactorial - improving 3. ?Aspiration Pneumonia 4. Chronic atrial fibrillation - on Lovenox 5. Hypertension. 6. 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 STAGE I (Present of admission) 7. Hypokalemia / s/p Code green/ Other issues per previous notes PLAN: * Still has very poor appetite. I d/w DPOA - Cris. Will consult Hospice. * Cont Atbx * Cont IVF due to poor appetite * Cont to monitor * Cont current meds as below/wound care Review of Systems - Review of Systems Other: Cannot obtain due to current cognition - Medications/Allergies Allergies/Adverse Reactions: Allergies Allergy/AdvReac Type Severity Reaction Status Date / Time codeine Allergy Verified 01/11/14 20:16 Medications: Current Medications Acidophilus (Floranex) 1 tab PO TID [facility] Last Admin: 10/06/17 20:42 Dose: Not Given Aspirin (Aspirin Chewable) 81 mg PO DAILY [facility] Last Admin: 10/06/17 07:49 Dose: Not Given Benzonatate (Tessalon) 200 mg PO TIDPRN PRN PRN Reason: Cough Calcium Carbonate (Tums) 1,000 mg PO Q4H PRN PRN Reason: Heartburn or Indigestion Enoxaparin Sodium (Lovenox) 60 mg SC 0900,2100 [facility] Last Admin: 10/06/17 20:58 Dose: 60 mg Fentanyl (Sublimaze) 12.5 mcg SLOW IVP Q4H PRN PRN Reason: Severe Pain (7-10) Last Admin: 10/06/17 17:34 Dose: 12.5 mcg Hydralazine HCl (Apresoline) 10 mg SLOW IVP Q4H PRN PRN Reason: SBP Greater Than 180 Potassium Chloride/Dextrose/Sod Cl (D5 1/2 Ns W/20 Meq Kcl) 1,000 mls @ 50 mls/ hr IV .Q20H [facility] Last Admin: 10/06/17 20:59 Dose: 1,000 mls Meropenem 1 gm/ Device 50 mls @ 100 mls/hr IVPB Q8HR [facility] Last Admin: 10/06/17 20:59 Dose: 50 mls Labetalol HCl (Normodyne) 10 mg SLOW IVP Q4H PRN PRN Reason: Systolic BP > 160 Levothyroxine Sodium (Synthroid) 40 mcg IVP 0600 [facility] Last Admin: 10/06/17 06:04 Dose: 40 mcg Megestrol Acetate (Megace) 400 mg PO BID [facility] Last Admin: 10/06/17 20:42 Dose: Not Given Miscellaneous Medication (Pharmacy To Dose) 1 each IVPB PRN PRN PRN Reason: Pharmacy to dose Nadolol (Corgard) 40 mg PO DAILY [facility] Last Admin: 10/06/17 07:49 Dose: Not Given Ondansetron HCl (Zofran Odt) 4 mg PO Q6H PRN PRN Reason: Nausea/Vomiting Ondansetron HCl (Zofran) 4 mg IVP Q6H PRN PRN Reason: Nausea/Vomiting Pantoprazole Sodium (Protonix) 40 mg IVP DAILY [facility] Last Admin: 10/06/17 07:48 Dose: 40 mg Simvastatin (Zocor) 5 mg PO HS [facility] Last Admin: 10/06/17 20:42 Dose: Not Given Sodium Chloride (Flush - Normal Saline) 10 ml IVF Q12HR [facility] Last Admin: 10/06/17 20:42 Dose: Not Given Sodium Chloride (Flush - Normal Saline) 10 ml IVF PRN PRN PRN Reason: Saline Flush Last Admin: 09/30/17 05:18 Dose: 10 ml Tramadol HCl (Ultram) 50 mg PO Q4H PRN PRN Reason: Pain Last Admin: 10/05/17 08:11 Dose: 50 mg
[2017-10-07] MEDS: Levothyroxine 100 MCG SDV IVP SCH (05:01)
[2017-10-07] MEDS: MEROPENEM 1 GM/50 ML 1 GM in Premix Bag 1 BAG IVPB SCH ×2 (05:02→14:50)
[2017-10-07] MEDS: Lactinex Tablet PO SCH ×3 (10:38→22:27)
[2017-10-07] MEDS: Nadolol 40 MG TAB PO SCH (10:38)
[2017-10-07] MEDS: Megestrol Acetate 800 MG/20 ML UDCUP PO SCH ×2 (10:38→22:27)
[2017-10-07] MEDS: Pantoprazole 40 MG VIAL IVP SCH (10:42)
[2017-10-07] MEDS: Enoxaparin Sodium 60 MG/0.6 ML SYRINGE SC SCH ×2 (10:42→22:23)
[2017-10-07] MEDS: D5 1/2 NS w/20 mEq KCL 1,000 ML IV SCH (14:55)
--- NOTE | 2017-10-07 20:46 | PDOC.PN ---
- Subjective Encounter Start Date: 10/07/17 Encounter Start Time: 14:30 -: non-verbal Patient seen and examined. - Objective Resuscitation Status: Resuscitation Status DNR:Do Not Resuscitate MAR Reviewed: Yes Vital Signs & Weight: Vital Signs (12 hours) Temp Pulse Pulse Pulse Resp BP BP 10/07/17 16:00 97.4 F L 106 H 12 10/07/17 09:08 106 H 97 159/98 H 159/88 H BP Pulse Ox Pulse Ox Pulse Ox 10/07/17 16:00 126/79 96 10/07/17 09:08 96 97 Weight Admit Weight 145 lb 4 oz Weight 145 lb 4 oz I&O: 10/06/17 10/07/17 10/08/17 06:59 06:59 06:59 Intake Total 840 1129 700 Output Total 2650 2790 700 Balance -1810 -1661 0 Result Diagrams: 10/06/17 04:09 10/06/17 04:09 Additional Labs: Accuchecks 10/07/17 10/07/17 10/07/17 17:15 11:06 05:06 POC Glucose 107 109 101 10/06/17 20:04 POC Glucose 106 Phys Exam - Physical Examination Constitutional: NAD Respiratory: no wheezing, no rhonchi Cardiovascular: RRR, no rub Gastrointestinal: soft, positive bowel sounds Dx/Plan - Plan DVT proph w/lovenox, DVT proph w/SCDs IMPRESSION: 1. Sepsis with acute organ dysfunction due to acute cholangitis/acute cholecystitis s/p Cholecystomy 2. Toxic Metabolic Encephalopathy - multifactorial - improving 3. ?Aspiration Pneumonia 4. Chronic atrial fibrillation - on Lovenox 5. Hypertension. 6. 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 STAGE I (Present of admission) 7. Hypokalemia / s/p Code green/ Other issues per previous notes PLAN: * Await Hospice Eval * Cont current meds as below/wound care Review of Systems - Review of Systems Other: Cannot obtain due to current mentation - Medications/Allergies Allergies/Adverse Reactions: Allergies Allergy/AdvReac Type Severity Reaction Status Date / Time codeine Allergy Verified 01/11/14 20:16 Medications: Current Medications Acidophilus (Floranex) 1 tab PO TID [facility] Last Admin: 10/07/17 14:52 Dose: Not Given Aspirin (Aspirin Chewable) 81 mg PO DAILY [facility] Last Admin: 10/07/17 10:38 Dose: Not Given Benzonatate (Tessalon) 200 mg PO TIDPRN PRN PRN Reason: Cough Calcium Carbonate (Tums) 1,000 mg PO Q4H PRN PRN Reason: Heartburn or Indigestion Enoxaparin Sodium (Lovenox) 60 mg SC 0900,2100 [facility] Last Admin: 10/07/17 10:42 Dose: 60 mg Fentanyl (Sublimaze) 12.5 mcg SLOW IVP Q4H PRN PRN Reason: Severe Pain (7-10) Last Admin: 10/06/17 17:34 Dose: 12.5 mcg Hydralazine HCl (Apresoline) 10 mg SLOW IVP Q4H PRN PRN Reason: SBP Greater Than 180 Potassium Chloride/Dextrose/Sod Cl (D5 1/2 Ns W/20 Meq Kcl) 1,000 mls @ 50 mls/ hr IV .Q20H [facility] Last Admin: 10/07/17 14:55 Dose: 1,000 mls Ceftriaxone Sodium 1 gm/ (Sodium Chloride) 100 mls @ 200 mls/hr IVPB DAILY [facility] Labetalol HCl (Normodyne) 10 mg SLOW IVP Q4H PRN PRN Reason: Systolic BP > 160 Levothyroxine Sodium (Synthroid) 40 mcg IVP 0600 [facility] Last Admin: 10/07/17 05:01 Dose: 40 mcg Megestrol Acetate (Megace) 400 mg PO BID [facility] Last Admin: 10/07/17 10:38 Dose: Not Given Miscellaneous Medication (Pharmacy To Dose) 1 each IVPB PRN PRN PRN Reason: Pharmacy to dose Nadolol (Corgard) 40 mg PO DAILY [facility] Last Admin: 10/07/17 10:38 Dose: Not Given Ondansetron HCl (Zofran Odt) 4 mg PO Q6H PRN PRN Reason: Nausea/Vomiting Ondansetron HCl (Zofran) 4 mg IVP Q6H PRN PRN Reason: Nausea/Vomiting Pantoprazole Sodium (Protonix) 40 mg IVP DAILY [facility] Last Admin: 10/07/17 10:42 Dose: 40 mg Simvastatin (Zocor) 5 mg PO HS [facility] Last Admin: 10/06/17 20:42 Dose: Not Given Sodium Chloride (Flush - Normal Saline) 10 ml IVF Q12HR [place] Last Admin: 10/07/17 10:42 Dose: 10 ml Sodium Chloride (Flush - Normal Saline) 10 ml IVF PRN PRN PRN Reason: Saline Flush Last Admin: 09/30/17 05:18 Dose: 10 ml Tramadol HCl (Ultram) 50 mg PO Q4H PRN PRN Reason: Pain Last Admin: 10/05/17 08:11 Dose: 50 mg
[2017-10-07] MEDS ORDERED: cefTRIAXone\\ROCEPHIN 1 GM, Syringe 0.4 ML in Sterile Water 9.6 ML SLOW IVP SCH (22:00)
[2017-10-07] MEDS: Simvastatin 5 MG TAB PO SCH (22:27)
[2017-10-08 04:15] VITALS: TEMP 97.5
[2017-10-08 04:43] LABS: Hemoglobin 14.6 g/dL (12.0-16.0); Platelet Count 422 thou/uL (130-400)
[2017-10-08] MEDS: traMADol HCl 50 MG TAB PO PRN (04:44)
[2017-10-08 05:07] LABS: Calc. Creatinine Clearance 81 mL/min (70-130); Estimated GFR-MDRD Greater than 90
[2017-10-08] MEDS: Levothyroxine 100 MCG SDV IVP SCH (06:43)
[2017-10-08] MEDS ORDERED: cefTRIAXone\\ROCEPHIN 1 GM in Sodium Chloride 0.9% 100 ML IVPB SCH (09:00)
[2017-10-08] MEDS: Pantoprazole 40 MG VIAL IVP SCH (09:45)
[2017-10-08] MEDS: Enoxaparin Sodium 60 MG/0.6 ML SYRINGE SC SCH (09:45)
[2017-10-08] MEDS: Nadolol 40 MG TAB PO SCH (09:52)
[2017-10-08] MEDS: Megestrol Acetate 800 MG/20 ML UDCUP PO SCH (09:52)
[2017-10-08] MEDS: Lactinex Tablet PO SCH (09:52)
--- NOTE | 2017-10-08 13:44 | DIS ---
DATE OF DISCHARGE: 10/08/2017 DISCHARGE DISPOSITION: To [facility] with hospice. ALLERGIES: CODEINE. FOLLOWUP: Follow up with primary care physician, Dr. Davidson, at the nursing facility. The patient w as seen on the day of discharge. The patient is still somnolent, not responding to verbal commands. DISCHARGE MEDICATIONS: Omnicef 300 mg twice a day for 1 more week. Follow up with Dr. Gama after 1 -2 weeks for removal of the cholecystostomy tube. BRIEF HOSPITAL COURSE: The patient is an 87-year-old female with dementia, currently residing at [facility], presented to [facility] with sepsis and possible symptoms consistent with ch olangitis. The patient was transferred to this facility for hospital admission. A workup was consis tent with cholecystitis with questionable cholangitis. She underwent cholecystostomy tube per Surger y and GI recommendation. Culture from the gallbladder aspirate showed E. coli. A PICC line was plac ed. The patient also had a code green for altered mentation, which later improved. A stroke workup was negative. Due to persistent poor appetite, the family decided on hospice. The patient will be d ischarged back to [facility] with hospice. FINAL DIAGNOSES: 1. Sepsis with acute organ dysfunction secondary to acute cholecystitis with questionable acute chol angitis, status post cholecystostomy tube. 2. Toxic metabolic encephalopathy, multifactorial. 3. Questionable aspiration pneumonia. 4. Chronic atrial fibrillation, on anticoagulation. Due to poor appetite and lethargy, the patient was placed on Lovenox during the hospital stay. 5. Hypertension. 6. Hypokalemia. 7. Left lateral foot pressure ulcer present on admission. 8. Stage II sacrococcygeal pressure ulcer present on admission. 9. Hyperlipidemia. 10. Dementia. 11. Swallow dysfunction. 12. Chronic kidney disease stage 2. 13. CODEINE allergy. CODE STATUS: DO NOT RESUSCITATE. SIGNIFICANT LABS: Lactic acid at [facility] was 3.5. WBC count was 33.6, AST 406, ALT 265, alk shai phosphatase 254 with bilirubin 5.6. Total time coordinating the discharge of this patient was 33 minutes.
[2017-10-08 14:17] VITALS: BP 127/90
== END 2017-10-08 13:40 | disposition hospice, inpatient (51) | DRG 871 ==
LOC: ERS 21:16 → 2NO 22:10 → T4-A 09-30 12:53
PROVIDERS: ADMIT Internal Medicine; ATTEND Internal Medicine
PROC: 0F943ZZ Drainage of Gallbladder, Percutaneous Approach (ICD-10-PCS; 2017-09-27)
PROC: 02HV33Z Insertion of Infusion Device into Superior Vena Cava, Percutaneous Approach (ICD-10-PCS; principal; 2017-10-01)
DX: A41.9 Sepsis, unspecified organism (principal); G92 Toxic encephalopathy; J69.0 Pneumonitis due to inhalation of food and vomit; L89.151 Pressure ulcer of sacral region, stage 1; K83.0 Cholangitis; K81.0 Acute cholecystitis; I12.0 Hypertensive chronic kidney disease with stage 5 chronic kidney disease or end stage renal disease; N39.0 Urinary tract infection, site not specified; I48.2 Chronic atrial fibrillation; I49.5 Sick sinus syndrome; E86.0 Dehydration; L89.892 Pressure ulcer of other site, stage 2; F03.90 Unspecified dementia, unspecified severity, without behavioral disturbance, psychotic disturbance, mood disturbance, and anxiety; E78.5 Hyperlipidemia, unspecified; N18.2 Chronic kidney disease, stage 2 (mild); E03.9 Hypothyroidism, unspecified; R65.20 Severe sepsis without septic shock; E87.6 Hypokalemia; Z88.5 Allergy status to narcotic agent; Z79.01 Long term (current) use of anticoagulants; Z86.73 Personal history of transient ischemic attack (TIA), and cerebral infarction without residual deficits; M81.0 Age-related osteoporosis without current pathological fracture; Z90.710 Acquired absence of both cervix and uterus
CPT/HCPCS: 36415; 36416; 36569; 47010; 70450; 71045; 74177; 77012; 80048; 80053; 80069; 81001; 82565; 82805; 83605; 83690; 83735; 84100; 84484; 85014; 85018; 85025; 85049; 85060; 85610; 85730; 86140; 87070; 87077; 87086; 87186; 87205; 89051; 96361; 96365; A4216; A4353; C1729; C1751; C9113; G8978-GP-CN; G8979-GP-CL; G8979-GP-CN; G8980-GP-CN; G8987-GO-CM; G8988-GO-CK; G8996-GN-CJ; G8996-GN-CK; G8997-GN-CJ; J0360; J0696; J1644; J1650; J2185; J2250; J2270; J2543; J3010; J3370; J3480; J7050